=== PATIENT | female | born 1930 | race Caucasian/White ===

== ENCOUNTER → 2016-04-09 | Day surgery (SDC) | payer MEDICARE, OTHER ==
[~2016-04-09] VITALS: Ht 160 cm; Wt 60.6 kg
[~2016-04-09] MED LIST: ACETAMINOPHEN/CODEINE ELIX 120 MG/12 MG/5 ML CUP PO PRN; AMLO5TAB2 PO; ASPI1TAB69 PO; BUPIVACAINE HCL PF 0.25% 30 ML VIAL ONE; CHLORHEXIDINE GLUCONATE 4% SOLN 120 ML BTL TOP SCH; DIOV80TA4 PO; DO NOT ADM ANY ANTICOAGULANT DRUGS XX PRN; FERR324T4 PO; INSULIN HUMAN REGULAR 1,000 UNITS/10 ML VIAL SQ PRN; LACTATED RINGER'S 1000 ML IV SCH; METO25 PO; METO50TA PO; METOPROLOL TARTRATE 25 MG TAB PO PRN; NORC5TAB PO; ONDANSETRON HCL 4 MG/2 ML VIAL IV PRN; ONDANSETRON HCL 4 MG/2 ML VIAL IV PUSH ONE; PHENYLEPH/NS 1000 MCG/10 ML SYR IV ONE; PROPOFOL 200 MG/20 ML AMP IV ONE; RANI150C PO; SODIUM CHLORID 0.9% 500 ML IV SCH; SODIUM CHLORIDE 0.9% FLUSH 5 ML FLUSH IVF PRN; SODIUM CHLORIDE 0.9% FLUSH 5 ML FLUSH IVF SCH; TAB-TAB PO; VANCOMYCIN 1000 MG/NS 250 ML (for <70 kg) IV SCH; VITA100021 SL; ZANT150T2 PO; ceFAZolin 2 GM PREMIX 50 ML IV SCH; ceFAZolin INJ 1,000 MG VIAL IV ONE; ePHEDrine/NS 50 MG/5 ML SYR IV ONE; fentaNYL CITRATE 250 MCG/5 ML AMP ONE
[2016-04-09 14:27] VITALS: BP 134/84; PULSE 66; RESP 16; TEMP 97.6; O2SAT 98
[2016-04-09] MEDS: BUPIVACAINE HCL PF 0.25% 30 ML VIAL ONE ×2 (17:15→17:28)
--- NOTE | 2016-04-09 18:07 | PD.OP ---
cc: Ferny Joshua Jr., MD Operative Report Date of Surgery: Apr 09, 2016 Preoperative Diagnosis: Right carpal tunnel syndrome Postoperative Diagnosis: Same Procedure: Right open carpal tunnel release Anesthesia: Gen. Surgeon: Ferny Joshua Sales Representative Education Courses(s): KING Kim The surgical procedure was assisted by my Advanced Registered Nurse Practitioner. My SOCIAL SCIENTIST presence was necessary throughout this case for the manipulation and positioning of the surgical extremity. My SOCIAL SCIENTIST was assisting me throughout the duration of this procedure. The skill set of an Advance Registered Nurse Practitioner was medically necessary to complete this procedure. During the surgical case, the surgical supervisor was working at the back table and the Advance Registered Nurse Practitioner was directly assisting me. Resident Surgeon: None Operation and Findings: INDICATION FOR PROCEDURE: This patient is a 85-year-old female with clinical carpal tunnel syndrome, which was comfirmed on EMG. She failed conservative treatment such as activity modification, rest, NSAIDS and night splint. she is scheduled for the above-mentioned procedures. The planned procedures were discussed with the patient including the associated risks. The risks included but are not limited to bleeding, infection, nerve damage, failure to heal, possible need for reoperation, possible recurrence, or any associated risk of the anesthesia. sHe voiced understanding and agreed to proceed as planned. DESCRIPTION OF PROCEDURE: The patient was identified in the holding area and the correct operative site was identified by the surgeon's initials. Informed consent was obtained. The patient was then brought to the operating room and transferred to the operating table in supine position. Time-out was then performed at which point the surgeon, nursing staff, and anesthesia staff all confirmed the correct operative site and procedure. After adequate general LMA anesthesia was obtained, The left upper extremity was then prepped and draped in the usual sterile fashion. Planned skin incision was marked along the base of the patient's palm. Skin incision was then made and dissection was carried down with scalpel to the level of the palmar fascia which was sharply divided by the skin incision. Bleeding points were identified with electrocautery using bipolar electrocautery. Retractors were then placed to allow visualization of the distal extent of the transverse carpal ligament, and this was then divided longitudinally under direct vision. Metzenbaum scissors were used to dissect distal to this area to confirm the absence of any remaining crossing obstructing fibrous band. Retractors were then replaced proximally to allow visualization of proximal extent of the transverse carpal ligament and the release was continued proximally until complete release was performed. This was confirmed visually and with palpation. Next, Metzenbaum scissors were used to dissect anteroposterior adjacent antebrachial fascia, and this was divided longitudinally under direct vision. Carpal canal was then inspected. The median nerve was flattened and injected. No other abnormalities were noted. The tourniquet was then deflated and hemostasis was obtained. Wounds were then irrigated with normal saline and antibiotic additive. Skin incision was then closed with interrupted 3-0 nylon suture. The wound was then dressed with xeroform, 4 x 4s and a well padded soft volar soft dressing. The patient was then awakened, extubated, and transferred over to PACU in stable condition. There were no intraoperative or immediate postoperative complications. All counts were reported as correct. Ferny Joshua Jr., MD Apr 09, 2016 18:07
[2016-04-09 18:45] VITALS: BP 152/69; PULSE 72; RESP 20; TEMP 97.3; O2SAT 100
--- NOTE | 2016-04-10 22:57 | EKG ---
Date Performed: 04/09/2016 Time Performed: 14:04:46 PTAGE: 85 years EKG: Sinus rhythm POSSIBLE RIGHT VENTRICULAR CONDUCTION DELAY BORDERLINE ECG PREVIOUS TRACING : 04/09/2011 20.51 DOCTOR: Angel Schulz Interpretating Date/Time 04/10/2016 22:49:42
== END | disposition home or self-care (01) ==
LOC: HSDC 13:22
PROVIDERS: ATTEND Orthopaedic Surgery
DX: G56.01 Carpal tunnel syndrome, right upper limb (principal); R94.31 Abnormal electrocardiogram [ECG] [EKG]
CPT/HCPCS: 01810; 64721; 86850; 86900; 86901; 93005; J0690; J2370; J2405; J3370; J7050; J7120; J3010

== ENCOUNTER 2016-08-09 17:35 | Emergency (ER) | payer MEDICARE, OTHER ==
[~2016-08-09] VITALS: Ht 165.1 cm; Wt 63.0 kg
[~2016-08-09 17:35] MED LIST changes: -ACETAMINOPHEN/CODEINE ELIX 120 MG/12 MG/5 ML CUP PO PRN; -ASPI1TAB69 PO; -BUPIVACAINE HCL PF 0.25% 30 ML VIAL ONE; -CHLORHEXIDINE GLUCONATE 4% SOLN 120 ML BTL TOP SCH; -DO NOT ADM ANY ANTICOAGULANT DRUGS XX PRN; -FERR324T4 PO; -INSULIN HUMAN REGULAR 1,000 UNITS/10 ML VIAL SQ PRN; -LACTATED RINGER'S 1000 ML IV SCH; -METO25 PO; -METOPROLOL TARTRATE 25 MG TAB PO PRN; -ONDANSETRON HCL 4 MG/2 ML VIAL IV PRN; -ONDANSETRON HCL 4 MG/2 ML VIAL IV PUSH ONE; -PHENYLEPH/NS 1000 MCG/10 ML SYR IV ONE; -PROPOFOL 200 MG/20 ML AMP IV ONE; -RANI150C PO; -SODIUM CHLORID 0.9% 500 ML IV SCH; -SODIUM CHLORIDE 0.9% FLUSH 5 ML FLUSH IVF PRN; -SODIUM CHLORIDE 0.9% FLUSH 5 ML FLUSH IVF SCH; -TAB-TAB PO; -VANCOMYCIN 1000 MG/NS 250 ML (for <70 kg) IV SCH; -ceFAZolin 2 GM PREMIX 50 ML IV SCH; -ceFAZolin INJ 1,000 MG VIAL IV ONE; -ePHEDrine/NS 50 MG/5 ML SYR IV ONE; -fentaNYL CITRATE 250 MCG/5 ML AMP ONE
[2016-08-09 17:38] VITALS: BP 155/73; PULSE 75; RESP 14; TEMP 97.6; O2SAT 99
[2016-08-09] MEDS ORDERED: ASPI1TAB69 PO (18:00)
[2016-08-09] MEDS ORDERED: TETANUS/DIPHTHERIA TOXOID ADULT 0.5 ML VIAL IM ONE (18:00)
--- NOTE | 2016-08-09 18:01 | PD ---
HPI Chief Complaint: Laceration/Skin Injury Time Seen by Provider: 17:55 Travel History International Travel<30 days: No Contact w/Intl Traveler<30days: No Traveled to known affect area: No History of Present Illness HPI 85-year-old female presents the emergency department status post slip and fall at her granddaughter's house. Patient was attending her great-granddaughters first birthday, when she slipped from tripping on a bathmat in the bathroom falling backwards and hitting her head. She has no loss of consciousness. He denies headache. She also has contusion with swelling to the right elbow without pain. There is an ecchymosis and swelling of the right lateral non- bursa. Patient has a laceration to the right upper posterior parietal region, with minimal bleeding at this time. Patient denies dental injury or neck pain. She has no other complaints of pain or injury. She takes baby aspirin daily. She is allergic to cat dander but has no medication allergies. PFSH Past Medical History Arthritis: Yes Asthma: No Autoimmune Disease: No Cancer: No Cardiovascular Problems: No High Cholesterol: No Chemotherapy: No Chest Pain: No Congestive Heart Failure: No COPD: No Cerebrovascular Accident: No Diabetes: No Diminished Hearing: No Endocrine: No Gastrointestinal Disorders: No GERD: No Genitourinary: Yes (STRESS INCONTINENCE, URGENCY) Hepatitis: No Hiatal Hernia: No Hypertension: Yes Immune Disorder: No Kidney Stones: No Musculoskeletal: Yes (ARTHRITIS, RIGHT HAND PAIN) Neurologic: No Psychiatric: No Reproductive: Yes (BLOCKED FALLOPIAN TUBES) Respiratory: No Immunizations Current: Yes Migraines: No Radiation Therapy: No Renal Failure: No Seizures: No Sickle Cell Disease: No Sleep Apnea: No Thyroid Disease: No PNEUMOCCOCAL Vaccine (Year): 2009 Menopausal: Yes Past Surgical History Abdominal Surgery: Yes (APPY) AICD: No Arteriovenous Shunt: No Body Medical Devices: RIGHT ELBOW PINS Cardiac Surgery: No Ear Surgery: No Endocrine Surgery: No Eye Surgery: No Genitourinary Surgery: No Gynecologic Surgery: Yes (OVARIAN CYST 1950) Joint Replacement: Yes (BILAT HIPS, RIGHT SHOULDER, LEFT KNEE) Oral Surgery: Yes (WISDOM TEETH EXTRACTED) Pacemaker: No Thoracic Surgery: No Other Surgery: Yes Social History Alcohol Use: Yes (OCCASIONAL WINE WITH DINNER) Tobacco Use: No Substance Use: No Allergies-Medications (Allergen,Severity, Reaction): Coded Allergies: Cat Dander (Verified Allergy, Severe, 08/09/16) Reported Meds & Prescriptions Reported Meds & Active Scripts Active Reported Aspirin 81 Mg Tabdr 81 Mg PO DAILY Vitamin B-12 (Cyanocobalamin) 1,000 Mcg Subl 1,000 Mcg SL DAILY Amlodipine (Amlodipine Besylate) 5 Mg Tab 5 Mg PO DAILY Zantac (Ranitidine HCl) 150 Mg Tab 150 Mg PO BID Metoprolol Tartrate 50 Mg Tab 50 Mg PO BID Diovan (Valsartan) 80 Mg Tab 1 Tab PO TID Review of Systems Except as stated in HPI: all other systems reviewed are Neg General / Constitutional: No: Fever Eyes: No: Visual changes HENT: No: Headaches Cardiovascular: No: Chest Pain or Discomfort Respiratory: No: Shortness of Breath Gastrointestinal: No: Abdominal Pain Genitourinary: No: Dysuria Musculoskeletal: No: Pain Skin: No Rash Neurologic: No: Weakness Psychiatric: No: Depression Endocrine: No: Polydipsia Hematologic/Lymphatic: No: Easy Bruising Physical Exam Narrative GENERAL: Patient is talkative and pleasant and in no acute distress. SKIN: Warm and dry. Normal color. Normal turgor. No rash. Patient has swollen ecchymotic right olecranon bursa of the elbow. There is no abrasion or open wound. Patient has a 3 cm linear laceration to the upper right posterior parietal scalp. No other obvious signs of trauma are noted. HEAD: Atraumatic. Normocephalic. Mild tenderness at the laceration site. EYES: Pupils equal and round. No scleral icterus. No injection or drainage. ENT: No nasal bleeding or discharge. Mucous membranes pink and moist. No dental injury. Pharynx is clear. Airway is patent. NECK: Trachea midline. No bony tenderness or step-off. Range of motion is full. C-spine is cleared utilizing nexus criteria. CARDIOVASCULAR: Regular rate and rhythm. RESPIRATORY: No accessory muscle use. Clear to auscultation. Breath sounds equal bilaterally. MUSCULOSKELETAL: Extremities without clubbing, cyanosis, or edema. No obvious deformities. Right elbow is nontender, and has full range of motion without any signs of fracture dislocation. NEUROLOGICAL: Awake and alert. No obvious cranial nerve deficits. Motor grossly within normal limits. Five out of 5 muscle strength in the arms and legs. Normal speech. PSYCHIATRIC: Appropriate mood and affect; insight and judgment normal. Data Data Last Documented VS Vital Signs Date Time Temp Pulse Resp B/P Pulse Ox O2 Delivery O2 Flow Rate FiO2 08/09/16 17:38 97.6 75 14 155/[address] Brain W/O Iv Contrast(Rout) (08/09/16 17:54) Tetanus/Diphtheria Tox Adult (Tetanus/Di (08/09/16 18:00) Lidocai-Epi 1%-1:100,000 Inj (Xylocaine- (08/09/16 18:15) MDM Medical Decision Making Medical Screen Exam Complete: Yes Emergency Medical Condition: Yes Differential Diagnosis Slip and fall. Head contusion. Scalp laceration. Right elbow contusion. Narrative Course Patient is medically stable at time of exam. CT of the head is ordered. Laceration is repaired. See procedure note. CT shows no acute process or bleed. Radiologist. Ice and compression is applied to the right elbow. Patient is to keep the wound clean and dry Iuka should be removed in 1 week. Patient is to take Tylenol as needed for pain. Patient to follow-up with her primary care physician or return to the emergency department as needed. Procedures Procedure Narrative LACERATION LOCATION: Right upper posterior scalp LENGTH: 6 cm NUMBER OF STITCHES/NAMITA: 8 [place]uka REPAIR: The area of the laceration was prepped with hydrogen peroxide and sterilely draped. The laceration was infiltrated with 4 mL was 1% lidocaine with epinephrine. The wound was copiously irrigated and explored without evidence of foreign body, tendon injury or neurovascular injury. The wound was closed using namita. This was a single layer repair. Antibiotic ointment was applied. The patient was advised to keep the dressing clean and dry. Patient tolerated the procedure well. Diagnosis Primary Impression: Fall on same level from slipping as cause of accidental injury Additional Impressions: Contusion of scalp, initial encounter Laceration of scalp without complication Qualified Code: S01.01XA - Laceration of scalp without complication, initial encounter Contusion of right elbow, initial encounter Referrals: Primary Care Physician Patient Instructions: Contusion in Adults (ED), General Instructions, Laceration (ED), Scalp Contusion in Adults (ED) Additional Instructions: Laceration is repaired. CT shows no acute process or bleed. Radiologist. Ice and compression is applied to the right elbow. Patient is to keep the wound clean and dry Namita should be removed in 1 week. Patient is to take Tylenol as needed for pain. Patient to follow-up with her primary care physician or return to the emergency department as needed. Med/Other Pt SpecificInfo: No Meds Exist/No RX given Disposition: 01 DISCHARGE HOME Condition: Stable Sanjeev Jaime August 09, 2016 18:01
[2016-08-09] MEDS ORDERED: LIDOCAINE 1%/EPINEPHrine 1:100,000 SOLN 20 ML VIAL INFIL ONE (18:15)
--- NOTE | 2016-08-09 18:36 | RADHPO ---
EXAM DATE/TIME: 08/09/2016 18:12 [facility] COMPARISON: Report only CT BRAIN W/O CONTRAST, April 09, 2011, 11:39. INDICATIONS : Fell and hit head. RADIATION DOSE: 60.93 CTDIvol (mGy) MEDICAL HISTORY : Hypertension. SURGICAL HISTORY : Appendectomy. Orthopedic surgery. ENCOUNTER: Initial ACUITY: 1 day PAIN SCALE: 0/10 LOCATION: Right cranial TECHNIQUE: Multiple contiguous axial images were obtained of the head. Using automated exposure control and adj ustment of the mA and/or kV according to patient size, radiation dose was kept as low as reasonably a chievable to obtain optimal diagnostic quality images. FINDINGS: CEREBRUM: Mild ventriculomegaly noted, has been reported previously. No evidence of midline shift, mass lesion , hemorrhage or acute infarction. No extra-axial fluid collections are seen. There is low-attenuatio n in the periventricular white matter and atrophy. POSTERIOR FOSSA: The cerebellum and brainstem are intact. The 4th ventricle is midline. The cerebellopontine angle i s unremarkable. EXTRACRANIAL: Small right parietal scalp contusion. SKULL: The calvaria is intact. No evidence of skull fracture. CONCLUSION: No bleed or other acute intracranial abnormality. Acute right parietal scalp contusion. Atrophy and c hronic white matter changes. Nikita Aguilar MD on August 09, 2016 at 18:33 Board Certified Radiologist. This report was verified electronically.
== END 2016-08-09 18:58 | disposition home or self-care (01) ==
LOC: PHEFT 17:35
DX: S00.03XA Contusion of scalp, initial encounter (principal); S01.01XA Laceration without foreign body of scalp, initial encounter; Z23 Encounter for immunization; I10 Essential (primary) hypertension; W01.0XXA Fall on same level from slipping, tripping and stumbling without subsequent striking against object, initial encounter; Y92.012 Bathroom of single-family (private) house as the place of occurrence of the external cause; Y93.01 Activity, walking, marching and hiking
CPT/HCPCS: 12002; 70450; 90471; 90714

== ENCOUNTER 2016-08-15 11:46 | Emergency (ER) | payer MEDICARE, OTHER ==
[~2016-08-15] VITALS: Ht 157.5 cm; Wt 61.5 kg
[~2016-08-15 11:46] MED LIST changes: +ASPI1TAB69 PO; -NORC5TAB PO
[2016-08-15 11:49] VITALS: BP 146/75; PULSE 71; RESP 16; TEMP 97.3; O2SAT 98
--- NOTE | 2016-08-15 12:10 | PD ---
HPI . Staple removal Chief Complaint: Wound/Suture/Staple Re-Check Time Seen by Provider: 12:06 Travel History International Travel<30 days: No Contact w/Intl Traveler<30days: No Traveled to known affect area: No History of Present Illness HPI Patient is here for staple removal from her scalp. Deshawn were placed a week ago. Patient reports no problems. PFSH Past Medical History Arthritis: Yes Asthma: No Autoimmune Disease: No Cancer: No Cardiovascular Problems: No High Cholesterol: No Chemotherapy: No Chest Pain: No Congestive Heart Failure: No COPD: No Cerebrovascular Accident: No Diabetes: No Diminished Hearing: No Endocrine: No Gastrointestinal Disorders: No GERD: No Genitourinary: Yes (STRESS INCONTINENCE, URGENCY) Hepatitis: No Hiatal Hernia: No Hypertension: Yes (ON MEDS) Immune Disorder: No Kidney Stones: No Musculoskeletal: Yes (ARTHRITIS, RIGHT HAND PAIN) Neurologic: No Psychiatric: No Reproductive: Yes (BLOCKED FALLOPIAN TUBES) Respiratory: No Immunizations Current: Yes Migraines: No Radiation Therapy: No Renal Failure: No Seizures: No Sickle Cell Disease: No Sleep Apnea: No Thyroid Disease: No Tetanus Vaccination: < 5 Years Influenza Vaccination: No PNEUMOCCOCAL Vaccine (Year): 2009 ?: Not Menopausal: Yes Past Surgical History Abdominal Surgery: Yes (APPY) AICD: No Arteriovenous Shunt: No Body Medical Devices: RIGHT ELBOW PINS Cardiac Surgery: No Ear Surgery: No Endocrine Surgery: No Eye Surgery: No Genitourinary Surgery: No Gynecologic Surgery: Yes (OVARIAN CYST 1950) Joint Replacement: Yes (BILAT HIPS, RIGHT SHOULDER, LEFT KNEE) Oral Surgery: Yes (WISDOM TEETH EXTRACTED) Pacemaker: No Thoracic Surgery: No Other Surgery: Yes Social History Alcohol Use: Yes (OCCASIONAL WINE WITH DINNER) Tobacco Use: No Substance Use: No Allergies-Medications (Allergen,Severity, Reaction): Coded Allergies: Cat Dander (Verified Allergy, Severe, 08/15/16) Reported Meds & Prescriptions Reported Meds & Active Scripts Active Reported Aspirin 81 Mg Tabdr 81 Mg PO DAILY Vitamin B-12 (Cyanocobalamin) 1,000 Mcg Subl 1,000 Mcg SL DAILY Amlodipine (Amlodipine Besylate) 5 Mg Tab 5 Mg PO DAILY Zantac (Ranitidine HCl) 150 Mg Tab 150 Mg PO BID Metoprolol Tartrate 50 Mg Tab 50 Mg PO BID Diovan (Valsartan) 80 Mg Tab 1 Tab PO TID Review of Systems Except as stated in HPI: all other systems reviewed are Neg Musculoskeletal: No: Arthralgias (patient reports no real pain in her elbow), Limited ROM (patient reports no difficulty moving her elbow) Skin: Positive Change in Pigmentation (bruise on her right elbow which was also the result of the fall which caused the scalp laceration.) Physical Exam Narrative GENERAL: Awake and alert and in no acute distress. SKIN: Warm and dry. She does have a bruise on the right elbow. Healed scalp laceration with no drainage or redness. HEAD: Atraumatic. Normocephalic. EYES: Pupils equal and round. NECK: Trachea midline. CARDIOVASCULAR: Regular rate and rhythm. RESPIRATORY: No accessory muscle use. MUSCULOSKELETAL: No obvious deformities. No edema. Full range of motion of the right elbow without any discomfort. NEUROLOGICAL: Awake and alert. No obvious cranial nerve deficits. Motor grossly within normal limits. Normal speech. PSYCHIATRIC: Appropriate mood and affect; insight and judgment normal. Data Data Last Documented VS Vital Signs Date Time Temp Pulse Resp B/P Pulse Ox O2 Delivery O2 Flow Rate FiO2 08/15/16 11:49 97.3 71 16 146/75 98 MDM Medical Decision Making Medical Screen Exam Complete: Yes Emergency Medical Condition: Yes Differential Diagnosis My differential diagnosis of a wound check includes but is not limited to normal healing, delayed healing, localized wound infection, cellulitis, sepsis Narrative Course Patient is here for a couple removal from her scalp. The wound appears to be well-healed with no sign of infection. Diagnosis Primary Impression: Removal of staple Disposition: DISCHARGE HOME Condition: Stable Antonette Wills MD August 15, 2016 12:10
== END 2016-08-15 12:25 | disposition home or self-care (01) ==
LOC: PHEFT 11:46
DX: Z48.02 Encounter for removal of sutures (principal); S01.01XD Laceration without foreign body of scalp, subsequent encounter; S50.01XD Contusion of right elbow, subsequent encounter; W19.XXXD Unspecified fall, subsequent encounter; I10 Essential (primary) hypertension; Y92.9 Unspecified place or not applicable; Y99.9 Unspecified external cause status
CPT/HCPCS: 99281

== ENCOUNTER 2017-06-03 12:19 | Emergency (ER) | payer MEDICARE, OTHER ==
[~2017-06-03] VITALS: Ht 160 cm; Wt 60.0 kg
[2017-06-03 12:31] VITALS: BP 126/57; PULSE 90; RESP 16; TEMP 97.8; O2SAT 95; O2SAT 96
[2017-06-03] MEDS ORDERED: MULTTAB67 PO (12:44)
[2017-06-03] MEDS ORDERED: Iron PO (12:44)
[2017-06-03] MEDS ORDERED: predniSONE 20 MG TAB PO ONE (13:00)
--- NOTE | 2017-06-03 13:00 | PD ---
HPI Chief Complaint: Cold / Flu Symptoms Time Seen by Provider: 12:39 Travel History International Travel<30 days: No Contact w/Intl Traveler<30days: No Traveled to known affect area: No History of Present Illness HPI 86-year-old female presents to the ED for evaluation one month history of nonproductive cough. She endorses right lower anterior rib pain, diuretic in nature, onset yesterday. She denies ear pain, sinus congestion, rhinorrhea, fevers, chills, palpitations, shortness of breath, nausea, vomiting, lower extremity edema. She quit smoking over 40 years ago. No history of COPD, CHF. Denies history of environmental allergies. She did receive this years flu vaccine. No treatment attempted at home. PFSH Past Medical History Arthritis: Yes Asthma: No Autoimmune Disease: No Cancer: No Cardiovascular Problems: Yes (htn on meds) High Cholesterol: No Chemotherapy: No Chest Pain: No Congestive Heart Failure: No COPD: No Cerebrovascular Accident: No Diabetes: No Diminished Hearing: No Endocrine: No Gastrointestinal Disorders: No GERD: No Genitourinary: Yes (STRESS INCONTINENCE, URGENCY) Hepatitis: No Hiatal Hernia: No Hypertension: Yes (ON MEDS) Immune Disorder: No Kidney Stones: No Musculoskeletal: Yes (ARTHRITIS, RIGHT HAND PAIN) Neurologic: No Psychiatric: No Reproductive: Yes (BLOCKED FALLOPIAN TUBES) Respiratory: No Immunizations Current: Yes Migraines: No Radiation Therapy: No Renal Failure: No Seizures: No Sickle Cell Disease: No Sleep Apnea: No Thyroid Disease: No Tetanus Vaccination: < 5 Years Influenza Vaccination: Yes PNEUMOCCOCAL Vaccine (Year): 2009 ?: Not Menopausal: Yes Past Surgical History Abdominal Surgery: Yes (APPY) AICD: No Arteriovenous Shunt: No Body Medical Devices: RIGHT ELBOW PINS Cardiac Surgery: No Ear Surgery: No Endocrine Surgery: No Eye Surgery: No Genitourinary Surgery: No Gynecologic Surgery: Yes (OVARIAN CYST 1950) Joint Replacement: Yes (BILAT HIPS, RIGHT SHOULDER, LEFT KNEE) Oral Surgery: Yes (WISDOM TEETH EXTRACTED) Pacemaker: No Thoracic Surgery: No Other Surgery: Yes Social History Alcohol Use: Yes (OCCASIONAL WINE WITH DINNER) Tobacco Use: No (quit approx 40 years ago) Substance Use: No Allergies-Medications (Allergen,Severity, Reaction): Coded Allergies: cat dander (Unverified Allergy, Severe, 06/03/17) Reported Meds & Prescriptions Reported Meds & Active Scripts Active Proair Hfa 8.5 GM Inh (Albuterol Sulfate) 90 Mcg/Act Aer 2 Puff INH Q4-6H PRN 108 mcg/actuation Levaquin (Levofloxacin) 750 Mg Tablet 750 Mg PO DAILY 5 Days Reported [Iron] 1 Tab PO DAILY Multiple Vitamin 1 Tab 1 Tab PO DAILY Aspirin 81 Mg Tabdr 81 Mg PO DAILY Vitamin B-12 (Cyanocobalamin) 1,000 Mcg Subl 1,000 Mcg SL DAILY Amlodipine (Amlodipine Besylate) 5 Mg Tab 5 Mg PO DAILY Zantac (Ranitidine HCl) 150 Mg Tab 150 Mg PO BID Metoprolol Tartrate 50 Mg Tab 50 Mg PO BID Diovan (Valsartan) 80 Mg Tab 1 Tab PO TID Review of Systems Except as stated in HPI: all other systems reviewed are Neg Physical Exam Narrative GENERAL: Well-nourished, well-developed white female in no acute distress. SKIN: Warm and dry. HEAD: Normocephalic. Atraumatic. EYES: No scleral icterus. No injection or drainage. PERRLA. EOMI. ENT: Pearly obrien tympanic membranes bilaterally. Nasal mucosa is moist. Oropharynx without edema or exudate. Mild posterior edema. NECK: Supple, trachea midline. No JVD or lymphadenopathy. CARDIOVASCULAR: Regular rate and rhythm without murmurs, gallops, or rubs. No carotid bruits. 2+ DP and radial pulses bilaterally. CHEST: Tender to palpation of the anterior lateral right ribs. No deformity or crepitus. No retractions. RESPIRATORY: Breath sounds somewhat diminished, equal bilaterally. Rare end expiratory wheeze. No accessory muscle use. GASTROINTESTINAL: Abdomen soft, non-tender, nondistended. + Bowel sounds MUSCULOSKELETAL: No cyanosis, or edema. BACK: Nontender without obvious deformity. No CVA tenderness. Data Data Last Documented VS Vital Signs Date Time Temp Pulse Resp B/P (MAP) Pulse Ox O2 Delivery O2 Flow Rate FiO2 06/03/17 12:49 20 95 06/03/17 12:31 97.8 90 126/57 (80) Orders Orders Chest, Pa & Lat (06/03/17 ) Albuterol-Ipratropium Neb (Duoneb Neb) (06/03/17 13:00) Prednisone (Deltasone) (06/03/17 13:00) Levofloxacin (Levaquin) (06/03/17 13:45) Acetaminophen (Tylenol) (06/03/17 13:45) Ed Discharge Order (06/03/17 13:48) [facility] Medical Decision Making Medical Screen Exam Complete: Yes Emergency Medical Condition: Yes Differential Diagnosis Bronchitis versus pneumonia versus pleurisy versus upper airway cough syndrome versus other Narrative Course 86-year-old female presents to the ED for evaluation one month history of nonproductive cough. She endorses right lower anterior rib pain, diuretic in nature, onset yesterday. She quit smoking over 40 years ago. No history of COPD. received this years flu shot. Patient afebrile, respiratory rate 16, O2 saturation 96% on arrival. On exam the patient has a dry cough, reproducible tenderness on the anterior lateral right ribs. Breath sounds are somewhat diminished with rare end expiratory wheeze. Exam otherwise unremarkable. X- ray reveals a pleural effusion on the right with a consolidation as well as aortic root dilatation. Patient was administered duo nebs 2, 40 mg of prednisone. I spoke with the patient's sons at bedside. They are comfortable with discharge for outpatient treatment of community-acquired pneumonia. Patient is prescribed Levaquin 750 daily 5 days. First dose administered in the ED. She is provided with a rescue inhaler. She is instructed take Tylenol for the musculoskeletal pain, follow-up with her doctor in 2 days, return to the ED for worsening symptoms. She is stable and discharged home. Diagnosis Primary Impression: Community acquired pneumonia Qualified Codes: J18.1 - Lobar pneumonia, unspecified organism Referrals: Primary Care Physician Patient Instructions: Community Acquired Pneumonia (ED), General Instructions Additional Instructions: Rest, hydrate. Take antibiotics as prescribed. Tylenol or ibuprofen as needed for pleuritic chest pain. Rescue inhaler as needed for shortness of breath. Follow-up with primary care provider. Return to the ED for worsening symptoms or any urgent or emergent medical condition. Med/Other Pt SpecificInfo: Prescription(s) given Scripts Albuterol 8.5 GM Inh (Proair Hfa 8.5 GM Inh) 90 Mcg/Act Aer 2 PUFF INH Q4-6H Y for SHORTNESS OF BREATH, #1 INHALER 0 Refills 108 mcg/actuation Prov: Edin Elise MD 06/03/17 Levofloxacin (Levaquin) 750 Mg Tablet 750 MG PO DAILY for Infection for 5 Days, #5 TAB 0 Refills Prov: Edin Elise MD 06/03/17 Disposition: 01 DISCHARGE HOME Condition: Stable Rani Peralta Jun 03, 2017 13:00
[2017-06-03] MEDS: RESP: ALBUTEROL 2.5 MG/IPRATROPIUM 0.5 MG NEB (SCH) INH ×2 (13:28→13:29)
--- NOTE | 2017-06-03 13:36 | RADRPT ---
EXAM DATE/TIME: 06/03/2017 13:14 [facility] COMPARISON: No previous studies available for comparison. INDICATIONS : Cough for 1 month. MEDICAL HISTORY : Hypertension. Scoliosis. SURGICAL HISTORY : Appendectomy. ENCOUNTER: Initial ACUITY: 1 month PAIN SCORE: 9/10 LOCATION: Right chest FINDINGS: The heart is mildly enlarged. There is dilation of the aortic root and ascending aorta. The aortic kn ob measures approximately 7 cm. There is right-sided pleural effusion and consolidative change in the right lower lobe. There are chr onic interstitial changes throughout both lungs. There are advanced arthritic changes in the left shoulder. The patient is post arthroplasty on the ri t side. CONCLUSION: 1. Right-sided pleural effusion and consolidation. 2. 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 Domingo Mckeon MD on June 03, 2017 at 13:33 Board Certified Radiologist. This report was verified electronically.
[2017-06-03] MEDS ORDERED: ALBUAER3 INH (13:43)
[2017-06-03] MEDS ORDERED: LEVA750T9 PO (13:43)
[2017-06-03] MEDS ORDERED: LEVOFLOXACIN 750 MG TAB PO ONE (13:45)
[2017-06-03] MEDS ORDERED: ACETAMINOPHEN 500 MG CPLT PO ONE (13:45)
== END 2017-06-03 14:46 | disposition home or self-care (01) ==
LOC: PHEFT 12:19
DX: J18.1 Lobar pneumonia, unspecified organism (principal); R07.81 Pleurodynia; R05 Cough; I10 Essential (primary) hypertension; J90 Pleural effusion, not elsewhere classified
CPT/HCPCS: 71046; 94640; 94664; 99284; J7512

== ENCOUNTER 2017-06-04 21:30 | Inpatient (IN) | payer MEDICARE, OTHER ==
[~2017-06-04] VITALS: Ht 160 cm; Wt 58.5 kg
[~2017-06-04 21:30] MED LIST changes: +ALBUAER3 INH; +Iron PO; +LEVA750T9 PO; +MULTTAB67 PO
[2017-06-04 21:35] VITALS: BP 142/59; PULSE 112; RESP 18; TEMP 98.1; O2SAT 100
[2017-06-04] MEDS ORDERED: ACETAMINOPHEN 325 MG TAB PO ONE (21:45)
[2017-06-04] MEDS ORDERED: TETANUS/DIPHTHERIA TOXOID ADULT 0.5 ML VIAL IM ONE (22:00)
[2017-06-04] MEDS ORDERED: SODIUM CHLORID 0.9% 500 ML INJ 500 ML IV ONE (22:00)
--- NOTE | 2017-06-04 22:33 | RADRPT ---
EXAM DATE/TIME: 06/04/2017 21:56 [facility] COMPARISON: CT BRAIN W/O CONTRAST, August 09, 2016, 18:12. INDICATIONS : Fall. Laceration. Evaluate for cerebrovascular accident. RADIATION DOSE: 56.49 CTDIvol (mGy) MEDICAL HISTORY : Hypertension. SURGICAL HISTORY : None. ENCOUNTER: Initial ACUITY: 1 day PAIN SCALE: 5/10 LOCATION: occipital TECHNIQUE: Multiple contiguous axial images were obtained of the head. Using automated exposure control and adj ustment of the mA and/or kV according to patient size, radiation dose was kept as low as reasonably a chievable to obtain optimal diagnostic quality images. DICOM format image data is available electro nically for review and comparison. FINDINGS: CEREBRUM: Mild ventriculomegaly noted, has been reported previously. No evidence of midline shift, mass lesion , hemorrhage or acute infarction. No extra-axial fluid collections are seen. There is low-attenuatio n in the periventricular white matter and atrophy. POSTERIOR FOSSA: The cerebellum and brainstem are intact. The 4th ventricle is midline. The cerebellopontine angle i s unremarkable. EXTRACRANIAL: Right parietal scalp contusion/laceration. SKULL: The calvaria is intact. No evidence of skull fracture. CONCLUSION: 1. No bleed or evidence of an acute ischemic event. 2. Ventriculomegaly unchanged. 3. Chronic white matter changes are again seen. Nikita Aguilar MD on June 04, 2017 at 22:30 Board Certified Radiologist. This report was verified electronically.
[2017-06-04 22:34] LABS: AUTOMATED NEUTROPHIL # 22.9 TH/MM3 (1.8-7.7); BASOPHIL % 3.3 % (0.0-2.0); EOSINOPHIL # 0.1 TH/MM3 (0-0.4); EOSINOPHIL % 0.3 % (0.0-4.0); HEMATOCRIT 38.9 % (35.0-46.0); HEMOGLOBIN 12.6 GM/DL (11.6-15.3); LYMPH % 5.6 % (9.0-44.0); LYMPHOCYTE # 1.6 TH/MM3 (1.0-4.8); MEAN CELL VOLUME 89.9 FL (80.0-100.0); MEAN CORPUSCULAR HEMOGLOBIN 29.2 PG (27.0-34.0); MEAN CORPUSCULAR HGB CONC 32.4 % (32.0-36.0); MEAN PLATELET VOLUME 7.4 FL (7.0-11.0); MONO % 11.1 % (0.0-8.0); MONOCYTE # 3.2 TH/MM3 (0-0.9); NEUT % 79.7 % (16.0-70.0); PLATELET COUNT 521 TH/MM3 (150-450); RED BLOOD COUNT 4.33 MIL/MM3 (4.00-5.30); RED CELL DISTRIBUTION WIDTH 13.2 % (11.6-17.2); WHITE BLOOD COUNT 28.8 TH/MM3 (4.0-11.0)
[2017-06-04 22:39] VITALS: BP 151/66; PULSE 102; RESP 18; O2SAT 96
[2017-06-04 22:44] LABS: CHLORIDE 97 MEQ/L (98-107); SODIUM (NA) 131 MEQ/L (136-145)
[2017-06-04 22:47] LABS: CALCIUM 9.1 MG/DL (8.5-10.1)
[2017-06-04 22:48] LABS: BICARBONATE 22.4 MEQ/L (21.0-32.0); BLOOD UREA NITROGEN 24 MG/DL (7-18); GLUCOSE,RANDOM 103 MG/DL (74-106)
[2017-06-04 22:51] LABS: ALT (GPT) 51 U/L (10-53); AST (GOT) 48 U/L (15-37); CREATININE 0.92 MG/DL (0.50-1.00); GLOMERULAR FILTRATION RATE 58 ML/MIN (>89)
[2017-06-04 22:52] LABS: TOTAL BILIRUBIN ADULT 0.2 MG/DL (0.2-1.0); TOTAL PROTEIN 7.5 GM/DL (6.4-8.2)
[2017-06-04 22:54] LABS: ALKALINE PHOSPHATASE 115 U/L (45-117)
[2017-06-04 22:56] LABS: TROPONIN I LESS THAN 0.02 NG/ML (0.02-0.05)
[2017-06-04 23:05] LABS: ALBUMIN 2.1 GM/DL (3.4-5.0)
[2017-06-04] MEDS ORDERED: LIDOCAINE 2%/EPINEPHrine PF 1:200,000 20ML SDV INFIL ONE (23:15)
[2017-06-05] VITALS (11 sets, daily range): BP systolic 126–169; BP diastolic 58–79; PULSE 102–130; RESP 12–20; TEMP 96.2–98; O2SAT 92–98
[2017-06-05 00:18] LABS: BILIRUBIN, URINE NEG (NEG); BLOOD, URINE SMALL (NEG); GLUCOSE,URINE NEG (NEG); KETONE, URINE 15 mg/dL (NEG); NITRITE,URINE NEG (NEG); PH, URINE 5.5 (5.0-8.5); URINE COLOR YELLOW (YELLW/STRAW); URINE LEUKOCYTE ESTERASE LARGE (NEG)
[2017-06-05 00:24] LABS: BACTERIA, URINE MANY /hpf; SQUAMOUS EPITHELIAL CELL URINE > 8 /hpf (0-5)
--- NOTE | 2017-06-05 00:32 | PD ---
HPI Chief Complaint: Head Injury Time Seen by Provider: 21:40 Travel History International Travel<30 days: No Contact w/Intl Traveler<30days: No Traveled to known affect area: No History of Present Illness HPI Patient is an 86-year-old female who was in our hospital yesterday diagnosed with a pleural effusion and a pneumonia put on antibiotics. Patient was home today on the couch when she suddenly is unaware of how she ended up on the floor with a head laceration and pain to her occiput area she was lying there for a while when her daughter came and found her. Patient on arrival is awake alert mildly tachycardic 123 sinus with few PVCs patient denies any illness or pain except that pain in her head. SHe is on p.o. Levaquin for this and still is mildly febrile and tachycardic and had a syncopal episode. Denies chest pain denies SOB , Pt alert and OX3 and no complaints in ER she seems stoic PFSH Past Medical History Arthritis: Yes Asthma: No Autoimmune Disease: No Cancer: No Cardiovascular Problems: Yes (htn on meds) High Cholesterol: No Chemotherapy: No Chest Pain: No Congestive Heart Failure: No COPD: No Cerebrovascular Accident: No Diabetes: No Diminished Hearing: No Endocrine: No Gastrointestinal Disorders: No GERD: No Genitourinary: Yes (STRESS INCONTINENCE, URGENCY) Headaches: No Hepatitis: No Hiatal Hernia: No Heparin Induced Thrombocytopen: No Hypertension: Yes (ON MEDS) Immune Disorder: No Implanted Vascular Access Dvce: No Kidney Stones: No Musculoskeletal: Yes (ARTHRITIS, RIGHT HAND PAIN) Neurologic: No Psychiatric: No Reproductive: Yes (BLOCKED FALLOPIAN TUBES) Respiratory: No Immunizations Current: Yes Migraines: No Radiation Therapy: No Renal Failure: No Seizures: No Sickle Cell Disease: No Sleep Apnea: No Thyroid Disease: No Tetanus Vaccination: < 5 Years PNEUMOCCOCAL Vaccine (Year): 2009 ?: Not Menopausal: Yes Past Surgical History Abdominal Surgery: Yes (APPY) AICD: No Arteriovenous Shunt: No Body Medical Devices: RIGHT ELBOW PINS Cardiac Surgery: No Ear Surgery: No Endocrine Surgery: No Eye Surgery: No Genitourinary Surgery: No Gynecologic Surgery: Yes (OVARIAN CYST 1950) Joint Replacement: Yes (BILAT HIPS, RIGHT SHOULDER, LEFT KNEE) Neurologic Surgery: No Oral Surgery: Yes (WISDOM TEETH EXTRACTED) Pacemaker: No Thoracic Surgery: No Other Surgery: Yes Social History Alcohol Use: Yes (OCCASIONAL WINE WITH DINNER) Tobacco Use: No (quit approx 40 years ago) Substance Use: No Allergies-Medications (Allergen,Severity, Reaction): Coded Allergies: cat dander (Verified Allergy, Severe, 06/04/17) Reported Meds & Prescriptions Reported Meds & Active Scripts Active Proair Hfa 8.5 GM Inh (Albuterol Sulfate) 90 Mcg/Act Aer 2 Puff INH Q4-6H PRN 108 mcg/actuation Levaquin (Levofloxacin) 750 Mg Tablet 750 Mg PO DAILY 5 Days Reported [Iron] 1 Tab PO DAILY Multiple Vitamin 1 Tab 1 Tab PO DAILY Vitamin B-12 (Cyanocobalamin) 1,000 Mcg Subl 1,000 Mcg SL DAILY Amlodipine (Amlodipine Besylate) 5 Mg Tab 5 Mg PO DAILY Zantac (Ranitidine HCl) 150 Mg Tab 150 Mg PO BID Metoprolol Tartrate 50 Mg Tab 50 Mg PO BID Diovan (Valsartan) 80 Mg Tab 1 Tab PO TID Review of Systems Except as stated in HPI: all other systems reviewed are Neg Physical Exam Narrative GENERAL: Patient has a laceration contusion hematoma to the occiput of her right side of her head SKIN: Warm and dry. HEAD: +traumatic. Normocephalic. 7 cm irregular lac y- shaped EYES: Pupils equal and round. No scleral icterus. No injection or drainage. ENT: No nasal bleeding or discharge. Mucous membranes pink and moist. NECK: Trachea midline. No JVD. CARDIOVASCULAR: Regular rate and rhythm. Patient is tachycardic at 123 few PVCs on monitor RESPIRATORY: No accessory muscle use. Clear to auscultation. Breath sounds equal bilaterally. Patient is denies shortness of breath GASTROINTESTINAL: Abdomen soft, non-tender, nondistended. Hepatic and splenic margins not palpable. MUSCULOSKELETAL: Extremities without clubbing, cyanosis, or edema. No obvious deformities. NEUROLOGICAL: Awake and alert. No obvious cranial nerve deficits. Motor grossly within normal limits. Five out of 5 muscle strength in the arms and legs. Normal speech. PSYCHIATRIC: Appropriate mood and affect; insight and judgment normal. Data Data Last Documented VS Vital Signs Date Time Temp Pulse Resp B/P (MAP) Pulse Ox O2 Delivery O2 Flow Rate FiO2 06/05/17 00:24 102 16 126/59 (81) 97 Nasal Cannula 2.00 06/04/17 21:35 98.1 Orders Orders Acetaminophen (Tylenol) (06/04/17 21:45) Ct Brain W/O Iv Contrast(Rout) (06/04/17 ) Tetanus/Diphtheria Tox Adult (Tetanus/Di (06/04/17 22:00) Sodium Chlorid 0.9% 500 Ml Inj (Ns 500 M (06/04/17 22:00) Complete Blood Count With Diff (06/04/17 22:05) Comprehensive Metabolic Panel (06/04/17 22:05) Troponin I (06/04/17 22:05) Lipase (06/04/17 22:05) Blood Culture (06/04/17 22:05) Urinalysis - C+S If Indicated (06/04/17 22:05) Lidoca-Epi Pf 2%-1:200,000 Inj (Xylocain (06/04/17 23:15) Ct Thorax/ Chest Wo Iv Contras (06/05/17 ) Urine Culture (06/05/17 00:10) Place In Observation (06/05/17 ) Vital Signs (Adult) Q4H (06/05/17 00:42) Activity Oob With Assistance (06/05/17 00:42) Diet Heart Healthy (06/05/17 Breakfast) Sodium Chlor 0.9% 1000 Ml Inj (Ns 1000 M (06/05/17 00:42) Sodium Chloride 0.9% Flush (Ns Flush) (06/05/17 00:45) Sodium Chloride 0.9% Flush (Ns Flush) (06/05/17 09:00) Acetaminophen (Tylenol) (06/05/17 00:45) Ondansetron Inj (Zofran Inj) (06/05/17 00:45) Basic Metabolic Panel (Bmp) (06/06/17 06:00) Complete Blood Count With Diff (06/06/17 06:00) Resp Oxygen Suraj C Titrat 1-4 L (06/05/17 ) Heparin Inj (Heparin Inj) (06/05/17 00:45) Naloxone Inj (Narcan Inj) (06/05/17 00:45) Docusate Sodium-Senna (Dayanara-Colace) (06/05/17 09:00) Magnesium Hydroxide Liq (Milk Of Magnesi (06/05/17 00:45) Sennosides (Senokot) (06/05/17 00:45) Bisacodyl Supp (Dulcolax Supp) (06/05/17 00:45) Lactulose Liq (Lactulose Liq) (06/05/17 00:45) Levofloxacin 750 Mg Premix Inj (Levaquin (06/05/17 01:00) Admit Order (Ed Use Only) (06/05/17 00:52) Labs Laboratory Tests Test 06/04/17 22:25 06/05/17 00:10 White Blood Count 28.8 TH/MM3 Red Blood Count 4.33 MIL/MM3 Hemoglobin 12.6 GM/DL Hematocrit 38.9 % Mean Corpuscular Volume 89.9 FL Mean Corpuscular Hemoglobin 29.2 PG Mean Corpuscular Hemoglobin Concent 32.4 % Red Cell Distribution Width 13.2 % Platelet Count 521 TH/MM3 Mean Platelet Volume 7.4 FL Neutrophils (%) (Auto) 79.7 % Lymphocytes (%) (Auto) 5.6 % Monocytes (%) (Auto) 11.1 % Eosinophils (%) (Auto) 0.3 % Basophils (%) (Auto) 3.3 % Neutrophils # (Auto) 22.9 TH/MM3 Lymphocytes # (Auto) 1.6 TH/MM3 Monocytes # (Auto) 3.2 TH/MM3 Eosinophils # (Auto) 0.1 TH/MM3 Basophils # (Auto) 1.0 TH/MM3 CBC Comment AUTO DIFF Differential Comment AUTO DIFF CONFIRMED Blood Urea Nitrogen 24 MG/DL Creatinine 0.92 MG/DL Random Glucose 103 MG/DL Total Protein 7.5 GM/DL Albumin 2.1 GM/DL Calcium Level 9.1 MG/DL Alkaline Phosphatase 115 U/L Aspartate Amino Transf (AST/SGOT) 48 U/L Alanine Aminotransferase (ALT/SGPT) 51 U/L Total Bilirubin 0.2 MG/DL Sodium Level 131 MEQ/L Potassium Level 4.2 MEQ/L Chloride Level 97 MEQ/L Carbon Dioxide Level 22.4 MEQ/L Anion Gap 12 MEQ/L Estimat Glomerular Filtration Rate 58 ML/MIN Troponin I LESS THAN 0.02 NG/ML Lipase 101 U/L Urine Color YELLOW Urine Turbidity SL CLOUDY Urine pH 5.5 Urine Specific [place] 1.025 Urine Protein TRACE mg/dL Urine Glucose (UA) NEG mg/dL Urine Ketones 15 mg/dL Urine Occult Blood SMALL Urine Nitrite NEG Urine Bilirubin NEG Urine Urobilinogen 0.2 MG/DL Urine Leukocyte Esterase LARGE Urine RBC 3-5 /hpf Urine WBC 20-24 /hpf Urine Squamous Epithelial Cells > 8 /hpf Urine Bacteria MANY /hpf Microscopic Urinalysis Comment CULTURE INDICATED MDM Medical Decision Making Medical Screen Exam Complete: Yes Emergency Medical Condition: Yes Differential Diagnosis pt has tachycardia and recent dx of pleural effusion and infiltrate. Now worsening Sx of syncope tonight , with head laceration from fall , DDx could include intracranial bleed vs sepsis , bronchitis worsening effusion and hypoxia causing syncope, or UTI other , possible cardiac cause of syncope tachy from low grade fever . pt has frequent PVCs could have had run of V-tach syncope Narrative Course CT head to rule out intracranial injury from syncope head injury . Laceration repaired by this MD and NS bolus and tylenol for tachycardia, pt heart rate slows towards normal and she is admitted for pleural effusion and consolidation seen on non Contrast CT and stable to admit she is already on Levaquin so I will let I D decide if antibx change indicated Procedures Procedure Narrative laceration repair 7 cm lac y shaped , lidaocaine 2% AND PT irrigated saline Peroxide [place] placed 13 total stals to close stellate y shape irregular lac Diagnosis Primary Impression: Laceration of scalp without complication Qualified Codes: S01.01XA - Laceration without foreign body of scalp, initial encounter Additional Impression: Syncope and collapse Admitting Information Admitting Physician Requests: Admit Cordell Okeefe MD Jun 05, 2017 00:32
[2017-06-05] MEDS: SODIUM CHLOR 0.9% 1000 ML INJ 1,000 ML IV SCH ×3 (00:42→22:34)
[2017-06-05] MEDS ORDERED: SENNOSIDES 8.6 MG TAB PO PRN (00:45)
[2017-06-05] MEDS ORDERED: BISACODYL 10 MG SUPP RECTAL PRN (00:45)
[2017-06-05] MEDS ORDERED: ONDANSETRON HCL 4 MG/2 ML VIAL IVP PRN (00:45)
[2017-06-05] MEDS ORDERED: ACETAMINOPHEN 325 MG TAB PO PRN (00:45)
[2017-06-05] MEDS ORDERED: LACTULOSE SYRUP 20 GM/30 ML CUP PO PRN (00:45)
[2017-06-05] MEDS ORDERED: NALOXONE HCL 0.4 MG/ML AMP IV PUSH PRN (00:45)
[2017-06-05] MEDS ORDERED: SODIUM CHLORIDE 0.9% FLUSH 10 ML FLUSH IV FLUSH PRN (00:45)
[2017-06-05] MEDS: HEPARIN SODIUM - SQ 10,000 UNITS/ML VIAL SQ SCH ×3 (00:45→23:34)
[2017-06-05] MEDS ORDERED: MAGNESIUM HYDROXIDE SUSP 30 ML CUP PO PRN (00:45)
[2017-06-05] MEDS ORDERED: LEVOFLOXACIN 750 MG PREMIX INJ 150 ML IV SCH (01:00)
--- NOTE | 2017-06-05 01:19 | RADRPT ---
EXAM DATE/TIME: 06/05/2017 00:46 [facility] COMPARISON: CHEST PA & LAT, June 03, 2017, 13:14. INDICATIONS : Pneumonia. Cough. RADIATION DOSE: 8.45 CTDIvol (mGy) MEDICAL HISTORY : Hypertension. SURGICAL HISTORY : Right shoulder replacement. ENCOUNTER: Initial ACUITY: 2 days PAIN SCALE: 3/10 LOCATION: chest TECHNIQUE: Volumetric scanning of the chest was performed. Using automated exposure control and adjustment of t he mA and/or kV according to patient size, radiation dose was kept as low as reasonably achievable to obtain optimal diagnostic quality images. DICOM format image data is available electronically for r eview and comparison. Follow-up recommendations for detected pulmonary nodules are based at a minimum on nodule size and pa tient risk factors according to Fleischner Society Guidelines. FINDINGS: LUNGS: Right basilar consolidation with associated right-sided effusion. Effusion has a loculated component tracking up the right posterolateral chest. PLEURAE: Partially loculated right pleural effusion.. MEDIASTINUM: The heart and great vessels demonstrate no acute abnormality. There is no mediastinal or hilar lymph adenopathy. Atherosclerotic calcification of the coronary arteries. Trace pericardial effusion AXILLAE: Within normal limits. No lymphadenopathy. MUSCULOSKELETAL: Within normal limits for patient age. MISCELLANEOUS: The visualized upper abdominal organs demonstrate no acute abnormality. Prominent 5 cm cyst anteriorl y in the mid pole left kidney. Right shoulder arthroplasty with severe degenerative changes of the le ft humerus. CONCLUSION: 1. Right basilar consolidation with associated partially loculated right-sided effusion. 2. Trace pericardial effusion. 3. Severe degenerative changes in the left shoulder. 4. 5 cm cyst in the anterior midpole of the left kidney. Сергей Van MD on June 05, 2017 at 1:14 Board Certified Radiologist. This report was verified electronically.
--- NOTE | 2017-06-05 08:52 | HHI.HP ---
[facility] Ihsan (Magnus) MD Madi Admission Diagnosis UTI, pleural effusion Diagnoses: Chief Complaint: Status post fall. Travel History International Travel<30 Days: No Contact w/Intl Traveler <30 Da: No Traveled to Known Affected Are: No History of Present Illness This is a pleasant 86 y/o Female who was in ER one day before coming to ER was diagnosed with a pleural effusion and Pneumonia was started on antibiotics, Patient was home today on the couch when she suddenly is unaware of how she ended up on the floor with a head laceration and pain to her occiput area she was lying there for a while when her daughter came and found her. Patient on arrival is awake alert mildly tachycardic 123 sinus with few PVCs patient denies any illness or pain except that pain in her head. He is on p.o. Levaquin for this and still is mildly febrile and tachycardic and had a syncopal episode. Denies chest pain denies SOB Seen in her bedroom, found dry mouth, no new issues, Review of Systems Constitutional: DENIES: Fever, Chills, Change in appetite Endocrine: DENIES: Heat/cold intolerance Eyes: DENIES: Blurred vision, Eye pain Except as stated in HPI: all other systems reviewed are Neg Past Family Social History Past Medical History OA Stress incontinence Hypertension Past Surgical History Appendectomy Right elbow surgery Ovarian cyst 1950 Bilateral Hip surgery right shoulder surgery Left knee surgery Reported Medications Reported Meds & Active Scripts Active Proair Hfa 8.5 GM Inh (Albuterol Sulfate) 90 Mcg/Act Aer 2 Puff INH Q4-6H PRN 108 mcg/actuation Levaquin (Levofloxacin) 750 Mg Tablet 750 Mg PO DAILY 5 Days Reported [Iron] 1 Tab PO DAILY Multiple Vitamin 1 Tab 1 Tab PO DAILY Vitamin B-12 (Cyanocobalamin) 1,000 Mcg Subl 1,000 Mcg SL DAILY Amlodipine (Amlodipine Besylate) 5 Mg Tab 5 Mg PO DAILY Zantac (Ranitidine HCl) 150 Mg Tab 150 Mg PO BID Metoprolol Tartrate 50 Mg Tab 50 Mg PO BID Diovan (Valsartan) 80 Mg Tab 1 Tab PO TID Allergies: Coded Allergies: cat dander (Verified Allergy, Severe, 06/04/17) Active Ordered Medications Current Medications Medications (Trade) Dose Ordered Sig/Chucky Route Start Time Stop Time Status Last Admin Sodium Chloride 1,000 ml @ 75 mls/hr [id number] IV 06/05/17 00:42 06/05/17 00:42 (NS Flush) 2 ml UNSCH PRN IV FLUSH 06/05/17 00:45 (NS Flush) 2 ml BID IV FLUSH 06/05/17 09:00 (Tylenol) 650 mg Q4H PRN PO 06/05/17 00:45 (Zofran Inj) 4 mg Q6H PRN IVP 06/05/17 00:45 (Heparin Inj) 5,000 units Q12H SQ 06/05/17 00:45 (Narcan Inj) 0.4 mg UNSCH PRN IV PUSH 06/05/17 00:45 (Dayanara-Colace) 1 tab BID PO 06/05/17 09:00 (Milk Of Magnesia Liq) 30 ml Q12H PRN PO 06/05/17 00:45 (Senokot) 17.2 mg Q12H PRN PO 06/05/17 00:45 (Dulcolax Supp) 10 mg DAILY PRN RECTAL 06/05/17 00:45 (Lactulose Liq) 30 ml DAILY PRN PO 06/05/17 00:45 Levofloxacin/ Dextrose 150 ml @ 100 mls/hr Q48H IV 06/07/17 01:00 Family History Mother with Hypertension. Social History Lives alone Alcohol abuse wine with dinner Denies other toxic habits. Physical Exam Vital Signs Vital Signs Date Time Temp Pulse Resp B/P (MAP) Pulse Ox O2 Delivery O2 Flow Rate FiO2 06/05/17 08:23 93 21 06/05/17 02:36 06/05/17 02:30 96.2 108 20 129/73 (91) 93 06/05/17 01:13 98 Nasal Cannula 2.00 06/05/17 00:24 102 16 126/59 (81) 97 Nasal Cannula 2.00 06/04/17 22:39 102 18 151/66 (94) 96 Nasal Cannula 2.00 06/04/17 21:52 18 100 Nasal Cannula 2.00 06/04/17 21:35 98.1 112 18 142/59 (86) 100 Physical Exam GENERAL: Patient has a laceration contusion hematoma to the occiput of her right side of her head SKIN: Warm and dry. HEAD: Atraumatic. Normocephalic. EYES: Pupils equal and round. No scleral icterus. No injection or drainage. ENT: No nasal bleeding or discharge. Mucous membranes pink and moist. NECK: Trachea midline. No JVD. CARDIOVASCULAR: Regular rate and rhythm. Patient is tachycardic at 123 few PVCs on monitor RESPIRATORY: No accessory muscle use. Clear to auscultation. Breath sounds equal bilaterally. Patient is denies shortness of breath GASTROINTESTINAL: Abdomen soft, non-tender, nondistended. Hepatic and splenic margins not palpable. MUSCULOSKELETAL: Extremities without clubbing, cyanosis, or edema. No obvious deformities. NEUROLOGICAL: Awake and alert. No obvious cranial nerve deficits. Motor grossly within normal limits. Five out of 5 muscle strength in the arms and legs. Normal speech. PSYCHIATRIC: Appropriate mood and affect; insight and judgment normal. Laboratory Laboratory Tests Test 06/04/17 22:25 06/05/17 00:10 White Blood Count 28.8 Red Blood Count 4.33 Hemoglobin 12.6 Hematocrit 38.9 Mean Corpuscular Volume 89.9 Mean Corpuscular Hemoglobin 29.2 Mean Corpuscular Hemoglobin Concent 32.4 Red Cell Distribution Width 13.2 Platelet Count 521 Mean Platelet Volume 7.4 Neutrophils (%) (Auto) 79.7 Lymphocytes (%) (Auto) 5.6 Monocytes (%) (Auto) 11.1 Eosinophils (%) (Auto) 0.3 Basophils (%) (Auto) 3.3 Neutrophils # (Auto) 22.9 Lymphocytes # (Auto) 1.6 Monocytes # (Auto) 3.2 Eosinophils # (Auto) 0.1 Basophils # (Auto) 1.0 CBC Comment AUTO DIFF Differential Comment AUTO DIFF CONFIRMED Blood Urea Nitrogen 24 Creatinine 0.92 Random Glucose 103 Total Protein 7.5 Albumin 2.1 Calcium Level 9.1 Alkaline Phosphatase 115 Aspartate Amino Transf (AST/SGOT) 48 Alanine Aminotransferase (ALT/SGPT) 51 Total Bilirubin 0.2 Sodium Level 131 Potassium Level 4.2 Chloride Level 97 Carbon Dioxide Level 22.4 Anion Gap 12 Estimat Glomerular Filtration Rate 58 Troponin I LESS THAN 0.02 Lipase 101 Urine Color YELLOW Urine Turbidity SL CLOUDY Urine pH 5.5 Urine Specific [place] 1.025 Urine Protein TRACE Urine Glucose (UA) NEG Urine Ketones 15 Urine Occult Blood SMALL Urine Nitrite NEG Urine Bilirubin NEG Urine Urobilinogen 0.2 Urine Leukocyte Esterase LARGE Urine RBC 3-5 Urine WBC 20-24 Urine Squamous Epithelial Cells > 8 Urine Bacteria MANY Microscopic Urinalysis Comment CULTURE INDICATED Date/Time Source Procedure Growth Status 06/04/17 22:25 Blood Peripheral Aerobic Blood Culture Pending Received 06/04/17 22:25 Blood Peripheral Anaerobic Blood Culture Pending Received 06/05/17 00:10 Urine Clean Catch Urine Culture Pending Received Result Diagram: 06/04/175 06/04/17 2225 Imaging Last Impressions Chest CT 06/05/17 0000 Signed Impressions: Service Date/Time: Monday, June 05, 2017 00:46 - CONCLUSION: 1. Right basilar consolidation with associated partially loculated right-sided effusion. 2. Trace pericardial effusion. 3. Severe degenerative changes in the left shoulder. 4. 5 cm cyst in the anterior midpole of the left kidney. Сергей Van MD Head CT 06/04/17 0000 Signed Impressions: Service Date/Time: Sunday, June 04, 2017 21:56 - CONCLUSION: 1. No bleed or evidence of an acute ischemic event. 2. Ventriculomegaly unchanged. 3. Chronic white matter changes are again seen. MD Loki Lambert VTE Risk Assessment Caprini VTE Risk Assessment: No/Low Risk (score <= 1) Caprini Risk Assessment Model Point Value = 1 Point Value = 2 Point Value = 3 Point Value = 5 Age 41-60 Minor surgery BMI > 25 kg/m2 Swollen legs Varicose veins or History of unexplained or recurrent spontaneous Oral contraceptives or hormone replacement Sepsis (< 1 month) Serious lung disease, including pneumonia (< 1 month) Abnormal pulmonary function Acute myocardial infarction Congestive heart failure (< 1 month) History of inflammatory bowel disease Medical patient at bed rest Age 61-74 Arthroscopic surgery Major open surgery (> 45 min) Laparoscopic surgery (> 45 min) Malignancy Confined to bed (> 72 hours) Immobilizing plaster cast Central venous access Age >= 75 History of VTE Family history of VTE Factor V Leiden Prothrombin [id number] Lupus anticoagulant Anticardiolipin antibodies Elevated serum homocysteine Heparin-induced thrombocytopenia Other congenital or acquired thrombophilia Stroke (< 1 month) Elective arthroplasty Hip, pelvis, or leg fracture Acute spinal cord injury (< 1 month) Prophylaxis Regimen Total Risk Factor Score Risk Level Prophylaxis Regimen 0-1 Low Early ambulation 2 Moderate Order ONE of the following: *Sequential Compression Device (SCD) *Heparin 5000 units SQ BID 3-4 Higher Order ONE of the following medications: *Heparin 5000 units SQ TID *Enoxaparin/Lovenox 40 mg SQ daily (WT < 150 kg, CrCl > 30 mL/min) *Enoxaparin/Lovenox 30 mg SQ daily (WT < 150 kg, CrCl > 10-29 mL/min) *Enoxaparin/Lovenox 30 mg SQ BID (WT < 150 kg, CrCl > 30 mL/min) AND/OR *Sequential Compression Device (SCD) 5 or more Highest Order ONE of the following medications: *Heparin 5000 units SQ TID (Preferred with Epidurals) *Enoxaparin/Lovenox 40 mg SQ daily (WT < 150 kg, CrCl > 30 mL/min) *Enoxaparin/Lovenox 30 mg SQ daily (WT < 150 kg, CrCl > 10-29 mL/min) *Enoxaparin/Lovenox 30 mg SQ BID (WT < 150 kg, CrCl > 30 mL/min) AND *Sequential Compression Device (SCD) Assessment and Plan Assessment and Plan 1. Sepsis patient with Leukocytosis 28 and Tachycardia 112, found positive Chest X ray for .Right basilar consolidation, loculated pleural effusion has Hyponatremia, following blood cultures, has positive Urinalysis, following Urine culture, will switch from Levaquin to Cefepime and Azithromycin asked for Laboratory to be complete, added Bronchodilator, Mucolytic and incentive spirometry. Legionella antigen, Pneumococcal antigen Sputum culture, 2. Dehydration giving one bolus of 500 ml of fluid and increase to 100 ml per hour daily 3. Syncope probable vasovagal secondary to her Sepsis, dehydration but will check, Echocardiogram, Carotid ultrasound, Cardiac monitoring. 4. OA by history 5. Stress incontinence to continue Home medicines 6. Hypertension to continue Home medicines. DVT prophylaxis the patient has history of brain hemorrhage will continue SCDs and rapid ambulation asked for PT and OT today. GI prophylaxis with Famotidine. manager mental health consult Code Status Full code Discussed Condition With Patient Physician Certification 2 Midnight Certification Type: Admission for Inpatient Services Order for Inpatient Services The services are ordered in accordance with Medicare regulations or non- Medicare payer requirements, as applicable. In the case of services not specified as inpatient-only, they are appropriately provided as inpatient services in accordance with the 2-midnight benchmark. Estimated LOS (days): 3 days is the estimated time the patient will need to remain in the hospital, assuming treatment plan goals are met and no additional complications. Post-Hospital Plan: Not yet determined Skyler Jones MD Jun 05, 2017 08:52
[2017-06-05] MEDS: METOPROLOL TARTRATE 50 MG TAB PO SCH ×2 (09:00→22:33)
[2017-06-05] MEDS: SODIUM CHLORIDE 0.9% FLUSH 10 ML FLUSH IV FLUSH SCH ×2 (09:00→22:33)
[2017-06-05] MEDS: VALSARTAN 80 MG TAB PO SCH ×3 (09:00→17:11)
[2017-06-05] MEDS: MULTIVITAMIN TAB PO SCH (09:15)
[2017-06-05] MEDS ORDERED: SODIUM CHLORID 0.9% 500 ML INJ 500 ML IV ONE (10:30)
[2017-06-05] MEDS: RESP: ALBUTEROL 2.5 MG/IPRATROPIUM 0.5 MG NEB (SCH) NEB ×4 (11:22→23:29)
[2017-06-05] MEDS: DOCUSATE SODIUM 50 MG/SENNA 8.6 MG TAB PO SCH ×2 (12:08→22:33)
[2017-06-05] MEDS: CYANOCOBALAMIN 1,000 MCG TAB PO SCH (12:08)
[2017-06-05] MEDS: BENZOCAINE 6 MG/MENTHOL 10 MG LOZENGE BUCCAL PRN ×3 (12:08→18:24)
[2017-06-05] MEDS: FAMOTIDINE 20 MG TAB PO SCH ×2 (12:08→22:33)
[2017-06-05] MEDS: amLODIPine BESYLATE 5 MG TAB PO SCH (12:08)
[2017-06-05] MEDS: AZITHROMYCIN INJ 500 MG in SODIUM CHLOR 0.9% 250 ML INJ 250 ML IV SCH (12:12)
[2017-06-05] MEDS: CEFEPIME INJ 1,000 MG in SODIUM CHLORIDE 0.9% INJ 100 ML IV SCH ×2 (12:13→22:33)
--- NOTE | 2017-06-05 14:07 | RADRPT ---
EXAM DATE/TIME: 06/05/2017 12:51 [facility] COMPARISON: No previous studies available for comparison. INDICATIONS : Syncope. MEDICAL HISTORY : Hypertension. Glasses. Dentures. Ovarian cysts. Urinary incontinence. Arthritis. Intraventricular hemmorage. SURGICAL HISTORY : Appendectomy. Wisdome teeth removed. Bilateral hip replacement. Bilateral elbow surgery. Right sh oulder surgery. Left knee replacement. ENCOUNTER: Initial ACUITY: 1 day PAIN SCORE: 1/10 LOCATION: Bilateral neck PEAK SYSTOLIC VELOCITIES (cm/sec): ICA/CCA RATIO: Right: 1.7 Left: 0.8 ICA: Right: 112.1 Left: 76.7 CCA: Right: 66.9 Left: 96.4 ECA: Right: 131.8 Left: 131.8 VERTEBRAL: Right: 56.8 antegrade Left: 62.0 antegrade Elevated flow velocities and ICA/CCA ratios have been found to correlate with increased degrees of vessel stenosis, calculated as percentage of diameter relative to a normal segment of distal ICA/CCA FINDINGS: RIGHT CAROTID: No significant stenosis is visualized. The waveforms are within normal limits. LEFT CAROTID: No significant stenosis is visualized. The waveforms are within normal limits. VERTEBRAL ARTERIES: Antegrade flow is seen in both vertebral arteries. MISCELLANEOUS: Moderate atherosclerosis identified within the region of the carotid bulbs. CONCLUSION: Moderate atherosclerosis identified within the region of the carotid bulbs. No significant stenosis i s visualized.. Ryanne Barton MD on June 05, 2017 at 14:02 Board Certified Radiologist. This report was verified electronically.
[2017-06-05 14:27] LABS: CHOLESTEROL 89 MG/DL (120-200); TRIGLYCERIDES 64 MG/DL (42-150)
[2017-06-05 14:52] LABS: CHOLESTEROL/ HDL RATIO 2.93 RATIO; FREE T4 1.62 NG/DL (0.76-1.46); HDL CHOLESTEROL 30.3 MG/DL (40.0-60.0); LDL CHOLESTEROL 46 MG/DL (0-99)
[2017-06-05 14:54] LABS: FOLATE GREATER THAN 20.0 NG/ML (3.1-17.5)
[2017-06-05] MEDS: guaiFENesin E.R. 600 MG TAB PO SCH (22:32)
[2017-06-05] MEDS ORDERED: ZOLPIDEM TARTRATE 5 MG TAB PO ONE (22:45)
[2017-06-06] VITALS (10 sets, daily range): BP systolic 127–176; BP diastolic 58–81; PULSE 98–128; RESP 16–22; TEMP 97–98.3; O2SAT 90–95
[2017-06-06] MEDS: BENZOCAINE 6 MG/MENTHOL 10 MG LOZENGE BUCCAL PRN (03:15)
[2017-06-06] MEDS: CEFEPIME INJ 1,000 MG in SODIUM CHLORIDE 0.9% INJ 100 ML IV SCH ×3 (03:18→21:05)
[2017-06-06] MEDS: RESP: ALBUTEROL 2.5 MG/IPRATROPIUM 0.5 MG NEB (SCH) NEB ×5 (03:39→20:35)
[2017-06-06 06:55] LABS: AUTOMATED NEUTROPHIL # 17.7 TH/MM3 (1.8-7.7); BASOPHIL # 0.1 TH/MM3 (0-0.2); BASOPHIL % 0.6 % (0.0-2.0); EOSINOPHIL % 0.2 % (0.0-4.0); HEMOGLOBIN 11.3 GM/DL (11.6-15.3); LYMPH % 2.8 % (9.0-44.0); LYMPHOCYTE # 0.6 TH/MM3 (1.0-4.8); MEAN CELL VOLUME 90.2 FL (80.0-100.0); MEAN CORPUSCULAR HGB CONC 33.3 % (32.0-36.0); MEAN PLATELET VOLUME 7.7 FL (7.0-11.0); MONO % 9.5 % (0.0-8.0); MONOCYTE # 1.9 TH/MM3 (0-0.9); NEUT % 86.9 % (16.0-70.0); PLATELET COUNT 439 TH/MM3 (150-450); RED BLOOD COUNT 3.77 MIL/MM3 (4.00-5.30); RED CELL DISTRIBUTION WIDTH 12.8 % (11.6-17.2); WHITE BLOOD COUNT 20.3 TH/MM3 (4.0-11.0)
[2017-06-06] MEDS ORDERED: PILL SPLITTER OTHER PRN (07:30)
[2017-06-06 07:31] LABS: BICARBONATE 25.1 MEQ/L (21.0-32.0); CREATININE 0.49 MG/DL (0.50-1.00)
[2017-06-06] MEDS: VALSARTAN 80 MG TAB PO SCH ×3 (09:00→16:37)
[2017-06-06] MEDS: SODIUM CHLOR 0.9% 1000 ML INJ 1,000 ML IV SCH ×2 (09:06→19:06)
[2017-06-06] MEDS: CYANOCOBALAMIN 1,000 MCG TAB PO SCH (09:52)
[2017-06-06] MEDS: METOPROLOL TARTRATE 50 MG TAB PO SCH ×2 (09:52→21:06)
[2017-06-06] MEDS: MULTIVITAMIN TAB PO SCH (09:52)
[2017-06-06] MEDS: FAMOTIDINE 20 MG TAB PO SCH ×2 (09:53→21:06)
[2017-06-06] MEDS: guaiFENesin E.R. 600 MG TAB PO SCH ×2 (09:53→21:06)
[2017-06-06] MEDS: amLODIPine BESYLATE 5 MG TAB PO SCH (09:53)
[2017-06-06] MEDS: SODIUM CHLORIDE 0.9% FLUSH 10 ML FLUSH IV FLUSH SCH ×2 (09:53→21:05)
[2017-06-06] MEDS: DOCUSATE SODIUM 50 MG/SENNA 8.6 MG TAB PO SCH ×2 (09:53→21:00)
[2017-06-06 10:12] LABS: HEMOGLOBIN A1C 6.5 % (4.3-6.0)
[2017-06-06] MEDS: AZITHROMYCIN INJ 500 MG in SODIUM CHLOR 0.9% 250 ML INJ 250 ML IV SCH (11:00)
[2017-06-06] MEDS: HEPARIN SODIUM - SQ 10,000 UNITS/ML VIAL SQ SCH (12:45)
[2017-06-06] MEDS ORDERED: RESP: ALBUTEROL 2.5 MG/IPRATROPIUM 0.5 MG NEB (PRN) NEB (13:15)
--- NOTE | 2017-06-06 13:16 | HHI.PR ---
Subjective Remarks Patient seen and examined today for follow-up on sepsis, pneumonia, pleural effusion. Patient states that she still having a pretty bad cough. Stating that she is wheezing. She cannot get comfortable. Patient remains afebrile. However, patient still tachycardic, significant leukocytosis. Patient still with septic criteria. Objective Vitals Vital Signs Date Time Temp Pulse Resp B/P (MAP) Pulse Ox O2 Delivery O2 Flow Rate FiO2 06/06/17 08:00 97.0 100 18 138/81 (100) 92 06/06/17 07:30 95 Nasal Cannula 2.00 06/06/17 03:12 98.0 101 18 127/58 (81) 94 06/06/17 00:07 98.3 98 16 137/65 (89) 93 06/05/17 20:58 98.0 109 18 169/79 (109) 95 06/05/17 19:50 130 06/05/17 19:48 95 Nasal Cannula 2.00 06/05/17 18:37 97.0 120 14 132/63 (86) 97 I/O 06/05/17 06/05/17 06/05/17 06/06/17 06/06/17 06/06/17 07:00 15:00 23:00 07:00 15:00 23:00 Intake Total 890 ml 118 ml 729 ml 645 ml Output Total 100 ml Balance 790 ml 118 ml 729 ml 645 ml Intake Oral 240 ml 118 ml 354 ml IV Total 650 ml 375 ml 645 ml Output Urine Total 100 ml # Voids 2 2 5 # Bowel Movements 0 2 0 Result Diagram: 06/06/17 0600 06/06/17 0600 Objective Remarks GENERAL: Well-developed, well-nourished, in no acute distress. alert HEENT: Head is normocephalic without any lesions or masses noted. Facial features are symmetric. Eyes: Extraocular muscles are intact. Conjunctivae were clear. NECK: Supple without any masses. Trachea midline no deviation. No JVD, CARDIAC: Regular rhythm, regular rate. S1/S2 are heard. No murmurs gallops or rubs. LUNGS: Diminished breath sounds noted bilaterally, expiratory wheeze noted, no rhonchi or rales. No use of accessory muscles on inspiration or expiration. ABDOMEN: Soft, nontender. Nondistended. Bowel sounds heard in all 4 quadrants. No organomegaly or masses. Negative rebound, negative guarding EXTREMITIES: No edema, pulses are equal bilaterally. No cyanosis or clubbing NEUROLOGY: Mood and affect appear appropriate. Cranial nerves II through XII grossly intact. Moving all extremities, speech is clear Urinary Catheter: No Vascular Central Line Catheter: No A/P Assessment and Plan Sepsis Patient still meets criteria with leukocytosis, tachycardia, pneumonia, urinary tract infection Patient continued on cefepime, Zithromax Need to check influenza testing Blood cultures negative for 2 days Legionella/streptococcal antigen negative Sputum culture rare growth of normal respiratory bertrand Urine culture showed immature growth Right basilar pneumonia with partially loculated right sided effusion Continue antibiotics as above Upon review of CT of does appear the patient does have significant right sided loculated pleural effusion that is amenable to thoracentesis, Request ultrasound-guided thoracentesis, check fluid for cell count, glucose , protein, cytology, culture Continue O2 supplementation maintain O2 sats greater than 92% Continue nebulizer treatments Continue Mucinex Syncopal episode unknown etiology could be secondary to vasovagal, sepsis, hypoxia CT the brain did not indicate any acute abnormality Carotid ultrasound shows moderate atherosclerosis with no significant stenosis visualized awaiting echocardiogram Monitor telemetry Leukocytosis, left shift likely secondary to infection Continue monitor CBC Hypertension Blood pressure stable home medications have been continued DVT prevention sequential compression devices, avoid chemical prophylaxis secondary history of brain hemorrhage Asif Wan Jun 06, 2017 13:16
[2017-06-06 13:58] LABS: PROTHROMBIN TIME - PATIENT 10.6 SEC (9.8-11.6)
--- NOTE | 2017-06-06 14:53 | RADRPT ---
EXAM DATE/TIME: 06/06/2017 14:41 [facility] COMPARISON: CHEST PA & LAT, June 03, 2017, 13:14. INDICATIONS : Status post thoracentesis MEDICAL HISTORY : Hypertension. SURGICAL HISTORY : Appendectomy. ENCOUNTER: Subsequent ACUITY: 1 day PAIN SCORE: 0/10 LOCATION: Bilateral chest FINDINGS: Patient is post attempted thoracentesis on the right. This demonstrates continued effusion and atelec tasis on the right. There is consolidation of the right lower lobe. No pneumothorax is seen. There is a small effusion on the left. The aortic arch appears dilated. The osseous structures demonstrate shoulder arthroplasty on the right. There degenerative changes on the left. CONCLUSION: 1. No pneumothorax identified following attempted right thoracentesis. Overall appearance of the pare nchyma similar. Domingo Mckeon MD on June 06, 2017 at 14:50 Board Certified Radiologist. This report was verified electronically.
--- NOTE | 2017-06-06 15:42 | RADRPT ---
EXAM DATE/TIME: 06/06/2017 13:52 [facility] COMPARISON: US CAROTID ARTERIES, June 05, 2017, 12:51. INDICATIONS : Right pleural effusion. MEDICAL HISTORY : Hypertension. Glasses. Dentures. Ovarian cysts. Urinary incontinence. Arthritis. Intraventricular hem morage. SURGICAL HISTORY : Appendectomy. Wisdome teeth removed. Bilateral hip replacement. Bilateral elbow surgery. Right should er surgery. Left knee replacement. ENCOUNTER: Initial ACUITY: 1 day PAIN SCORE: 4/10 LOCATION: Right chest FLUID: TECHNIQUE: 1. Ultrasound guidance for thoracentesis. 2. Thoracentesis. The risks, benefits, and alternatives to ultrasound guided thoracentesis were explained to the patien t in lay simple terms. The risk included but were not limited to bleeding, infection, emergent surger y and rarely . Written and verbal informed consent was obtained. The back was examined with ultrasound. There was effusion around the right lung which appeared quite loculated. We were requested to obtain a sample of this loculated fluid for diagnostic purposes. The best site identified by ultrasound was localized. The area was prepped and draped in the usual st erile fashion. The skin was anesthetized with 10 cc of 1% lidocaine. A safety centesis needle was adv anced through skin into the chest. No fluid could be obtained. The needle was withdrawn and readvance d at slightly different angle. Again, no fluid could be obtained. The needle was removed and a dress ing was applied. Immediately post procedure, the patient coughed up two quarters size blood clots. The patient was all owed to remain in the ultrasound procedure room under observation for approximately 30 minutes. The p atient did cough up a small amount of blood-tinged sputum during this time. This appeared to clear at the end of the 30 minutes. A chest x-ray was obtained. The post procedure chest x-ray examination with similar in appearance to the patient's preprocedure exam. There is no pneumothorax evident. Report was called to Connor Meyers the patient's PA. The nursing staff was advised to closely observe this patient. Followup chest x-ray in 2 hours will be performed. CONCLUSION: 1. Attempted ultrasound-guided thoracentesis. No fluid could be obtained due to the extensive loculat ed nature of the patient's effusion. 2. Post procedure the patient coughed up a small amount of blood. The patient was back to baseline at approximately 5-10 minutes. The patient was transferred back to her room in stable condition. 3. Chest x-ray in 2 hours will be ordered. Domingo Mckeon MD on June 06, 2017 at 15:30 Board Certified Radiologist. This report was verified electronically.
--- NOTE | 2017-06-06 16:42 | ECHRPT ---
Indication: CARDIOMYOPATHY CONCLUSIONS Normal left ventricular size. Mild concentric left ventricular hypertrophy. The left ventricular systolic function is normal with an estimated ejection fraction in the range of 60-65%. The left atrial size is mildly dilated. The right atrial size is mildly dilated. Wimb-iw-nxpftuzt mitral valve regurgitation. Mild mitral annular calcification. Aortic valve sclerosis is present. There is mild to moderate tricuspid valve regurgitation. Severe pulmonary hypertension. The estimated pulmonary arterial pressure is 75 mmHg. BP: 138 / 81 HR: 100 Rhythm: Sinus, PACs MEASUREMENTS (Male / Female) Normal Values Technical Quality:Fair 2D ECHO LVOT Diameter 1.9 cm Aortic Root Diameter 2.6 cm M-MODE AV Cusp Separation MM 1.4 cm DOPPLER AV Peak Velocity 216.0 cm/s AV Peak Gradient 18.7 mmHg AV Mean Gradient 9.5 mmHg AV Velocity Time Integral 29.8 cm LVOT Peak Velocity 83.2 cm/s LVOT Peak Gradient 2.8 mmHg LVOT Velocity Time Integral 13.9 cm AV Area Cont Eq vti 1.3 cm AV Area Cont Eq pk 1.1 cm Mitral E Point Velocity 116.0 cm/s LV E' Lateral Velocity 9.7 cm/s Mitral E to LV E' Lateral Ratio 11.9 LV E' Septal Velocity 7.6 cm/s Mitral E to LV E' Septal Ratio 15.4 TR Peak Velocity 404.0 cm/s TR Peak Gradient 65.3 mmHg Right Atrial Pressure 10.0 mmHg Pulmonary Artery Systolic Pressu 75.3 mmHg Right Ventricular Systolic Press 75.3 mmHg PV Peak Velocity 76.3 cm/s PV Peak Gradient 2.3 mmHg FINDINGS LEFT VENTRICLE Normal left ventricular size. Mild concentric left ventricular hypertrophy. RIGHT VENTRICLE Normal right ventricular size and systolic function. LEFT ATRIUM The left atrial size is mildly dilated. RIGHT ATRIUM The right atrial size is mildly dilated. ATRIAL SEPTUM No atrial level shunt is demonstrated by color flow Doppler interrogation. AORTA The aortic root and proximal ascending aorta are normal in size on limited imaging. MITRAL VALVE [id number] mitral valve regurgitation. Mild mitral annular calcification. AORTIC VALVE Aortic valve sclerosis is present. TRICUSPID VALVE There is mild to moderate tricuspid valve regurgitation. The estimated pulmonary arterial pressure is 75.3 mmHg. PULMONARY VALVE No pulmonary valve regurgitation or stenosis. VESSELS The inferior vena cava is normal in size. PERICARDIUM No pericardial effusion. Juancho Tadeo MD, FACC (Electronically Signed) Final Date:06 June 2017 16:41
--- NOTE | 2017-06-06 18:03 | RADRPT ---
EXAM DATE/TIME: 06/06/2017 17:01 [facility] COMPARISON: CHEST EXPIRATION ONLY, June 06, 2017, 14:41. INDICATIONS : Post thoracentesis MEDICAL HISTORY : Hypertension. SURGICAL HISTORY : Appendectomy. ENCOUNTER: Subsequent ACUITY: 1 day PAIN SCORE: 2/10 LOCATION: Bilateral chest FINDINGS: Single view chest demonstrate cardiomegaly with consolidation and right basilar effusion. Examination is unchanged from previous timed at 1441 hrs. There is diffuse interstitial infiltrate throughout both lungs. The patient is post right shoulder arthroplasty Advanced degenerative changes in the left shoulder. CONCLUSION: 1. Stable exam demonstrate continued large right-sided pleural effusion and consolidation. Domingo Mckeon MD on June 06, 2017 at 18:00 Board Certified Radiologist. This report was verified electronically.
[2017-06-06] MEDS ORDERED: LORazepam 2 MG/ML VIAL IV PUSH ONE (21:00)
[2017-06-07] VITALS (15 sets, daily range): BP systolic 117–188; BP diastolic 51–102; PULSE 88–124; RESP 18–38; TEMP 97.6–98.7; O2SAT 90–100
[2017-06-07] MEDS ORDERED: LEVOFLOXACIN 750 MG PREMIX INJ 150 ML IV SCH (01:00)
[2017-06-07] MEDS ORDERED: LORazepam 2 MG/ML VIAL IV PUSH ONE (02:30)
[2017-06-07] MEDS: CEFEPIME INJ 1,000 MG in SODIUM CHLORIDE 0.9% INJ 100 ML IV SCH ×3 (02:32→20:55)
[2017-06-07] MEDS: SODIUM CHLOR 0.9% 1000 ML INJ 1,000 ML IV SCH (02:32)
[2017-06-07 04:57] LABS: AUTOMATED NEUTROPHIL # 21.6 TH/MM3 (1.8-7.7); BASOPHIL # 0.3 TH/MM3 (0-0.2); BASOPHIL % 1.2 % (0.0-2.0); EOSINOPHIL # 0.1 TH/MM3 (0-0.4); EOSINOPHIL % 0.4 % (0.0-4.0); HEMATOCRIT 34.3 % (35.0-46.0); HEMOGLOBIN 11.8 GM/DL (11.6-15.3); MEAN CELL VOLUME 89.6 FL (80.0-100.0); MEAN CORPUSCULAR HEMOGLOBIN 30.7 PG (27.0-34.0); MEAN CORPUSCULAR HGB CONC 34.3 % (32.0-36.0); MEAN PLATELET VOLUME 7.4 FL (7.0-11.0); MONO % 8.8 % (0.0-8.0); MONOCYTE # 2.2 TH/MM3 (0-0.9); NEUT % 85.6 % (16.0-70.0); PLATELET COUNT 527 TH/MM3 (150-450); RED BLOOD COUNT 3.83 MIL/MM3 (4.00-5.30); RED CELL DISTRIBUTION WIDTH 13.6 % (11.6-17.2); WHITE BLOOD COUNT 25.2 TH/MM3 (4.0-11.0)
[2017-06-07 05:10] LABS: CALCIUM 8.1 MG/DL (8.5-10.1)
[2017-06-07 05:11] LABS: BICARBONATE 26.4 MEQ/L (21.0-32.0); MAGNESIUM 1.9 MG/DL (1.5-2.5)
[2017-06-07 05:14] LABS: CREATININE 0.41 MG/DL (0.50-1.00)
[2017-06-07] MEDS: RESP: ALBUTEROL 2.5 MG/IPRATROPIUM 0.5 MG NEB (SCH) NEB ×3 (07:54→20:45)
[2017-06-07 08:21] LABS: TOXIC GRANULATION 1+ (NORMAL)
[2017-06-07] MEDS: SODIUM CHLORIDE 0.9% FLUSH 10 ML FLUSH IV FLUSH SCH ×2 (08:49→20:56)
[2017-06-07] MEDS: amLODIPine BESYLATE 5 MG TAB PO SCH (08:50)
[2017-06-07] MEDS: guaiFENesin E.R. 600 MG TAB PO SCH ×2 (08:50→20:56)
[2017-06-07] MEDS: METOPROLOL TARTRATE 50 MG TAB PO SCH ×2 (08:50→20:55)
[2017-06-07] MEDS: DOCUSATE SODIUM 50 MG/SENNA 8.6 MG TAB PO SCH ×2 (08:51→20:55)
[2017-06-07] MEDS: FAMOTIDINE 20 MG TAB PO SCH ×2 (08:51→20:55)
[2017-06-07] MEDS: MULTIVITAMIN TAB PO SCH (08:51)
[2017-06-07] MEDS: CYANOCOBALAMIN 1,000 MCG TAB PO SCH (08:52)
[2017-06-07] MEDS: VALSARTAN 80 MG TAB PO SCH ×3 (08:52→17:56)
--- NOTE | 2017-06-07 09:00 | HHI.PR ---
Subjective Remarks Patient seen and examined today for follow-up on sepsis, pneumonia, urinary tract infection, pleural effusion. Patient apparently decompensated respiratory florez with increasing O2 demand. Patient had to be increased to 6 L nasal cannula maintain O2 saturations. Patient was transferred to ICU for closer monitoring. Upon evaluating the patient's morning she states that she is doing well. She is on 6 L with O2 saturations are 95%. She states that she does feel mildly improved. Patient remains afebrile Objective Vitals Vital Signs Date Time Temp Pulse Resp B/P (MAP) Pulse Ox O2 Delivery O2 Flow Rate FiO2 06/07/17 07:57 93 Nasal Cannula 6.00 06/07/17 04:05 98.7 94 35 118/71 (87) 95 06/07/17 00:03 97.8 100 29 119/54 (75) 98 06/06/17 20:35 95 Nasal Cannula 6.00 06/06/17 20:24 118 06/06/17 20:00 98.0 110 22 176/80 (112) 90 06/06/17 19:45 128 06/06/17 16:00 98.0 121 20 156/70 (98) 92 06/06/17 12:00 98.2 104 20 161/74 (103) 92 I/O 06/06/17 06/06/17 06/06/17 06/07/17 06/07/17 06/07/17 07:00 15:00 23:00 07:00 15:00 23:00 Intake Total 645 ml 700 ml 100 ml Output Total 400 ml Balance 645 ml 700 ml -300 ml Intake Oral 600 ml IV Total 645 ml 100 ml 100 ml Output Urine Total 400 ml # Voids 5 2 6 # Bowel Movements 0 Result Diagram: 06/07/17 0427 06/07/17 0427 Objective Remarks GENERAL: Well-developed, well-nourished, in no acute distress. alert HEENT: Head is normocephalic without any lesions or masses noted. Facial features are symmetric. Eyes: Extraocular muscles are intact. Conjunctivae were clear. NECK: Supple without any masses. Trachea midline no deviation. No JVD, CARDIAC: Regular rhythm, regular rate. S1/S2 are heard. No murmurs gallops or rubs. LUNGS: Diminished breath sounds noted bilaterally right greater than left, expiratory wheeze noted, no rhonchi or rales. No use of accessory muscles on inspiration or expiration. ABDOMEN: Soft, nontender. Nondistended. Bowel sounds heard in all 4 quadrants. No organomegaly or masses. Negative rebound, negative guarding EXTREMITIES: No edema, pulses are equal bilaterally. No cyanosis or clubbing NEUROLOGY: Mood and affect appear appropriate. Cranial nerves II through XII grossly intact. Moving all extremities, speech is clear Urinary Catheter: No Vascular Central Line Catheter: No A/P Assessment and Plan Sepsis Patient still meets criteria with leukocytosis, tachycardia, pneumonia, urinary tract infection Patient continued on cefepime, Zithromax Influenza testing was negative Blood cultures negative for 2 days Legionella/streptococcal antigen negative Sputum culture rare growth of normal respiratory bertrand Urine culture showed immature growth Acute hypoxic respiratory failure Likely secondary to pleural effusion, possible empyema, pneumonia Continue to some rotation maintain O2 sats greater than 90% Continue duo nebs every 6 hours while awake and every 2 hours Start Solu-Medrol 40 mg every [address]-guided thoracentesis which would improve this patient's clinical condition Right basilar pneumonia with partially loculated right sided effusion Continue antibiotics as above Upon review of CT of does appear the patient does have significant right sided loculated pleural effusion that is amenable to thoracentesis, Ultrasound-guided thoracentesis was requested, however was radiologist was unsuccessful in obtaining sample. Dr. Mckeon recommended CT-guided thoracentesis , Awaiting fluid for cell count, glucose, protein, cytology, culture after thoracentesis performed Discussed with radiology who indicated that since the patient is worsening respiratory status, patient will need to be transferred to main hospital for closer monitoring and procedure continue O2 supplementation maintain O2 sats greater than 92% Continue nebulizer treatments Continue Mucinex Syncopal episode unknown etiology could be secondary to vasovagal, sepsis, hypoxia CT the brain did not indicate any acute abnormality Carotid ultrasound shows moderate atherosclerosis with no significant stenosis visualized Echocardiogram indicated ejection fraction 60-65% with dilated ventricles. Severe pulmonary hypertension with PA peak pressure 75 nnhg Monitor telemetry Leukocytosis, left shift, worsening likely secondary to infection Continue monitor CBC Hypertension Blood pressure stable home medications have been continued DVT prevention sequential compression devices, avoid chemical prophylaxis secondary history of brain hemorrhage Asif Wan Jun 07, 2017 09:00
[2017-06-07] MEDS: methylPREDNISolone SOD SUCC 40 MG/1 ML VIAL IV PUSH SCH ×2 (11:26→17:57)
[2017-06-07] MEDS: AZITHROMYCIN INJ 500 MG in SODIUM CHLOR 0.9% 250 ML INJ 250 ML IV SCH (12:26)
[2017-06-07] MEDS ORDERED: LIDOCAINE HCL 1% 20 ML VIAL ONE (15:34)
[2017-06-07] MEDS ORDERED: MIDAZOLAM HCL 2 MG/2 ML VIAL ONE (15:56)
--- NOTE | 2017-06-07 17:51 | RADRPT ---
EXAM DATE/TIME: 06/07/2017 16:40 INDICATIONS : Plueral effusion. SEDATION TIME: 40 minutes MEDICATION(S): 1.) 1.5 midazolam (Versed) IV 2.) 75 fentanyl (Sublimaze) IV DEVICE(S): 1.) 8 Fr [place] FLUID: Total volume of 150 cc of clear, yellow fluid was removed. Fluid was sent for laboratory ordered studies. MEDICAL HISTORY : Hypertension. SURGICAL HISTORY : Appendectomy. shoulder surgery ENCOUNTER: Initial ACUITY: 1 day PAIN SCORE: 0/10 LOCATION: Bilateral chest PROCEDURE: 1. CT guided Right thoracentesis with chest tube placement. 2. Conscious sedation with continuous EKG and oximetry monitoring. 3. EKG and oximetry remained stable throughout the procedure. The site was prepped in sterile fashion. Full sterile technique was used, including cap, mask, steri le gloves and gown and a large sterile sheet. Hand hygiene and 2% chlorhexidine and/or betadine/alco hol prep was utilized per protocol for cutaneous antisepsis. The skin and subcutaneous tissues were infiltrated with local anesthetic solution. Using automated exposure control and adjustment of the m A and/or kV according to patient size, radiation dose was kept as low as reasonably achievable to obt ain optimal diagnostic quality images. DICOM format image data is available electronically for revie w and comparison. Under CT guidance an 18 gauge Aguirre blunt needle was used to puncture into the pleural space in the low right midaxillary line. A Conti wire was coiled in the pleural space. Transcutaneous tract was d ilated and an 8 Tajik nonlocking Madeleine pigtail arc ostomy tube was introduced. The volume of pleur al fluid was aspirated and sent for requested lab evaluation. The tube was then secured with silk sut ure and connected to Pleur-evac suction. Scanning revealed good positioning of the catheter with no e vident complication. The patient tolerated the procedure well and there were no complications. EKG and oximetry remained s table throughout the procedure. The patient was sent to recovery in stable condition. CONCLUSION: Uncomplicated CT-guided thoracostomy tube placement for right pleural effusion. Nikita Stuart MD on June 07, 2017 at 17:47 Board Certified Radiologist. This report was verified electronically.
[2017-06-07 21:34] LABS: PLEURAL FLUID EOS 1 %; PLEURAL FLUID LYMPHS 5 %; PLEURAL FLUID MONOS 1 %; PLEURAL FLUID POLYS (SEGS) 93 %
[2017-06-07 21:41] LABS: PLEURAL FLUID RBC 2488 /MM3 (0-0); PLEURAL FLUID WBC 1618 /MM3 (0-10)
[2017-06-07] MEDS: guaiFENesin/CODEINE SYRUP 200 MG/20 MG/10 ML CUP PO PRN (23:40)
[2017-06-08] VITALS (15 sets, daily range): BP systolic 131–156; BP diastolic 65–82; PULSE 86–120; RESP 18–22; TEMP 97.3–98.2; O2SAT 92–96
--- NOTE | 2017-06-08 00:45 | MB ---
cc: Donnie Villavicencio MD DATE OF CONSULT: 06/07/2017 REQUESTING PHYSICIAN: Dr. Tran. REASON FOR CONSULTATION: Pulmonary management. HISTORY OF PRESENT ILLNESS: Ms. Palacio is a pleasant 86-year-old female with a history of hypertension, arthritis, hip surgery. The patient was not doing well for the last 2 weeks or so. Last , the patient was seen in the emergency room and was diagnosed with pneumonia and pleural effusion. She was sent on antibiotic. Two days later, patient had a fall and she has a laceration on her head. The patient was brought to the emergency room. Laceration was sutured. She had a CT scan of the chest done, which shows that she has a right basilar consolidation with partial loculated right pleural effusion, trace pericardial effusion and 5 cm cyst in the left kidney. The patient had a thoracentesis attempted, which was not successful, then she had a chest tube placed. Pleural fluid was sent for studies, which are pending. Currently, she is on OxyMax and feels better, does not have fever. She has cough, which causes pain in her chest. LABORATORY EVALUATION: Reveals WBC count of 25.2, hemoglobin 11.8, hematocrit 34.3, MCV 89, platelet count 527. Sodium 130, potassium 4.0, chloride 102, CO2 at 26, BUN 9, creatinine 0.41. INR is 1.0. Influenza antigen is negative. Sputum culture is negative. Blood cultures so far are negative. PAST MEDICAL HISTORY: Is significant for history of arthritis, bilateral hip surgery, appendectomy, hypertension, right shoulder surgery. MEDICATIONS: She is currently takin. Famotidine. 2. Solu-Medrol 40 mg q8 hours. 3. Albuterol Atrovent nebulizer treatment. 4. Mucinex 600 mg twice a day. 5. Cefepime 1 gram q8 hours. 6. Zithromax 500 mg a day. 7. Chloraseptic lozenges. 8. Amlodipine 5 mg a day. 9. Metoprolol 50 mg twice a day. 10. Valsartan 80 mg 3 times a day. ALLERGIES: NO KNOWN DRUG ALLERGIES. SOCIAL HISTORY: She is a . No smoking or alcohol. FAMILY HISTORY: Noncontributory. REVIEW OF SYSTEMS: She lives alone. Normally she is up, around and active. Weight is stable. No DVT or pulmonary. No seizure, stroke. PHYSICAL EXAMINATION: GENERAL: Shows a frail elderly female, mildly short of breath. She is on OxyMax. VITAL SIGNS: Blood pressure 150/95, heart rate 112, respirations 18, temperature 98.2. HEENT: Pupils are equal and reactive to light. Oral mucosa and nasal mucosa normal. NECK: Supple with JVD noted. CHEST: Right chest tube in place, has decreased breath sounds on the right side. CARDIOVASCULAR: S1, S2 normal. ABDOMEN: Soft, nontender, nondistended. Bowel sounds are present. EXTREMITIES: No edema. IMPRESSION: 1. Pneumonia. 2. Right loculated pleural effusion, status post chest tube placement. 3. Leukocytosis. 4. Hypertension. 5. Arthritis. PLAN: I discussed with the patient and her son, Dc, who is a respiratory therapist. Will continue the antibiotic. Chest tube to suction and I will start her on cough syrup with codeine. Encourage her to use incentive spirometry and Acapella. Further treatment will depend on the course in the hospital. Thank you, Dr. Tran, for this consult. MD ELVI Mtz/SHANDA , 07:50 PM , 12:44 AM [facility]
[2017-06-08] MEDS: CEFEPIME INJ 1,000 MG in SODIUM CHLORIDE 0.9% INJ 100 ML IV SCH ×3 (03:54→20:25)
[2017-06-08] MEDS: methylPREDNISolone SOD SUCC 40 MG/1 ML VIAL IV PUSH SCH ×3 (04:00→19:24)
[2017-06-08 04:05] LABS: AUTOMATED NEUTROPHIL # 27.1 TH/MM3 (1.8-7.7); BASOPHIL # 0.1 TH/MM3 (0-0.2); BASOPHIL % 0.2 % (0.0-2.0); HEMATOCRIT 35.5 % (35.0-46.0); LYMPH % 2.5 % (9.0-44.0); LYMPHOCYTE # 0.7 TH/MM3 (1.0-4.8); MEAN CELL VOLUME 87.7 FL (80.0-100.0); MEAN CORPUSCULAR HEMOGLOBIN 29.6 PG (27.0-34.0); MEAN CORPUSCULAR HGB CONC 33.8 % (32.0-36.0); MEAN PLATELET VOLUME 6.7 FL (7.0-11.0); MONO % 4.7 % (0.0-8.0); MONOCYTE # 1.4 TH/MM3 (0-0.9); NEUT % 92.6 % (16.0-70.0); PLATELET COUNT 555 TH/MM3 (150-450); RED BLOOD COUNT 4.04 MIL/MM3 (4.00-5.30); WHITE BLOOD COUNT 29.3 TH/MM3 (4.0-11.0)
[2017-06-08 04:33] LABS: BICARBONATE 28.3 MEQ/L (21.0-32.0); CALCIUM 8.8 MG/DL (8.5-10.1); CREATININE 0.53 MG/DL (0.50-1.00); MAGNESIUM 2.3 MG/DL (1.5-2.5)
[2017-06-08] MEDS: guaiFENesin/CODEINE SYRUP 200 MG/20 MG/10 ML CUP PO PRN (04:58)
--- NOTE | 2017-06-08 05:01 | RADRPT ---
EXAM DATE/TIME: 06/08/2017 03:52 [facility] COMPARISON: CHEST EXPIRATION ONLY, June 06, 2017, 17:01. INDICATIONS : Short of breath. Post thoracentesis. MEDICAL HISTORY : Hypertension. SURGICAL HISTORY : Appendectomy. ENCOUNTER: Subsequent ACUITY: 2 days PAIN SCORE: 0/10 LOCATION: Bilateral chest FINDINGS: Persistent meniscal interface in the lower right chest have a similar to prior. Patchy areas of infi ltrate at the left lung base. The upper lungs are clear. No evidence of pneumothorax. Moderate car diomegaly. Right total shoulder arthroplasty advanced degenerative changes of the left shoulder. CONCLUSION: Persistent moderate size right pleural effusion. No evidence of pneumothorax. Patchy infiltrates at the left lung base. Buck Contreras MD on June 08, 2017 at 4:59 Board Certified Radiologist. This report was verified electronically.
[2017-06-08] MEDS: RESP: ALBUTEROL 2.5 MG/IPRATROPIUM 0.5 MG NEB (SCH) NEB ×3 (08:03→20:29)
[2017-06-08] MEDS: amLODIPine BESYLATE 5 MG TAB PO SCH (10:23)
[2017-06-08] MEDS: METOPROLOL TARTRATE 50 MG TAB PO SCH ×2 (10:23→21:28)
[2017-06-08] MEDS: MULTIVITAMIN TAB PO SCH (10:24)
[2017-06-08] MEDS: CYANOCOBALAMIN 1,000 MCG TAB PO SCH (10:24)
[2017-06-08] MEDS: FAMOTIDINE 20 MG TAB PO SCH ×2 (10:25→21:27)
[2017-06-08] MEDS: VALSARTAN 80 MG TAB PO SCH ×3 (10:25→19:24)
[2017-06-08] MEDS: SODIUM CHLORIDE 0.9% FLUSH 10 ML FLUSH IV FLUSH SCH ×2 (10:25→21:27)
[2017-06-08] MEDS: DOCUSATE SODIUM 50 MG/SENNA 8.6 MG TAB PO SCH ×2 (10:25→21:28)
[2017-06-08] MEDS: guaiFENesin E.R. 600 MG TAB PO SCH ×2 (10:25→21:28)
--- NOTE | 2017-06-08 17:22 | HHI.PR ---
Subjective Remarks Follow-up for sepsis, pneumonia, pleural effusion. Patient is currently doing well. She is sitting in her chair. Chest tube in place on the right side. No fever or chills. She is currently on 2 L of oxygen via nasal cannula. Objective Vitals Vital Signs Date Time Temp Pulse Resp B/P (MAP) Pulse Ox O2 Delivery O2 Flow Rate FiO2 06/08/17 16:00 104 06/08/17 15:26 95 Nasal Cannula 2.00 06/08/17 15:21 97.3 18 131/81 (98) 92 06/08/17 15:00 109 06/08/17 11:00 98 Nasal Cannula 3.00 Humidified 06/08/17 11:00 98.2 86 18 142/65 (90) 95 06/08/17 11:00 86 06/08/17 08:03 96 Nasal Cannula 4.00 06/08/17 07:00 97.8 102 18 139/67 (91) 96 06/08/17 07:00 96 Nasal Cannula 6.00 Humidified 06/08/17 07:00 102 06/08/17 03:00 102 06/08/17 03:00 98.1 107 22 152/72 (98) 96 06/08/17 03:00 96 Nasal Cannula 6.00 Humidified 06/07/17 23:00 94 06/07/17 23:00 97.6 95 20 118/57 (77) 93 06/07/17 23:00 95 Nasal Cannula 6.00 Humidified 06/07/17 20:47 97 Nasal Cannula 6.00 06/07/17 20:00 94 Nasal Cannula 6.00 Humidified 06/07/17 19:00 92 Venturi Mask 50 06/07/17 19:00 102 06/07/17 19:00 97.8 102 22 117/51 (73) 92 06/07/17 17:50 114 06/07/17 17:44 98.2 112 18 151/95 (113) 92 06/07/17 17:43 98.2 117 18 151/95 (113) 90 I/O 06/07/17 06/07/17 06/07/17 06/08/17 06/08/17 06/08/17 07:00 15:00 23:00 07:00 15:00 23:00 Intake Total 100 ml 250 ml 50 ml 480 ml Output Total 400 ml 150 ml 600 ml 905 ml Balance -300 ml 100 ml -550 ml -425 ml Intake Oral 50 ml 480 ml IV Total 100 ml 250 ml Output Urine Total 400 ml 150 ml 150 ml 675 ml Chest Tube Drainage Total 450 ml 230 ml # Voids 1 # Bowel Movements 0 Result Diagram: 06/08/17 0350 06/08/17 0350 Imaging Last Impressions Chest X-Ray 06/08/17 0000 Signed Impressions: Service Date/Time: Thursday, June 08, 2017 03:52 - CONCLUSION: Persistent moderate size right pleural effusion. No evidence of pneumothorax. Patchy infiltrates at the left lung base. Buck Contreras MD Chest Tube Insertion 06/07/17 0000 Signed Impressions: Service Date/Time: Wednesday, June 07, 2017 16:40 - CONCLUSION: Uncomplicated CT-guided thoracostomy tube placement for right pleural effusion. Nikita Stuart MD Thoracentesis Ultrasound 06/06/17 0000 Signed Impressions: Service Date/Time: Tuesday, June 06, 2017 13:52 - CONCLUSION: 1. Attempted ultrasound-guided thoracentesis. No fluid could be obtained due to the extensive loculated nature of the patient's effusion. 2. Post procedure the patient coughed up a small amount of blood. The patient was back to baseline at approximately 5-10 minutes. The patient was transferred back to her room in stable condition. 3. Chest x-ray in 2 hours will be ordered. Domingo Mckeon MD Chest CT 06/05/17 0000 Signed Impressions: Service Date/Time: Monday, June 05, 2017 00:46 - CONCLUSION: 1. Right basilar consolidation with associated partially loculated right-sided effusion. 2. Trace pericardial effusion. 3. Severe degenerative changes in the left shoulder. 4. 5 cm cyst in the anterior midpole of the left kidney. Сергей Van MD Carotid Artery Ultrasound 06/05/17 0000 Signed Impressions: Service Date/Time: Monday, June 05, 2017 12:51 - CONCLUSION: Moderate atherosclerosis identified within the region of the carotid bulbs. No significant stenosis is visualized.. Ryanne Barton MD Head CT 06/04/17 0000 Signed Impressions: Service Date/Time: Sunday, June 04, 2017 21:56 - CONCLUSION: 1. No bleed or evidence of an acute ischemic event. 2. Ventriculomegaly unchanged. 3. Chronic white matter changes are again seen. Nikita Aguilar MD Objective Remarks GENERAL: Alert, oriented 3, NAD. SKIN: Warm and dry. HEAD: Normocephalic. EYES: No scleral icterus. No injection or drainage. NECK: Supple, trachea midline. No JVD or lymphadenopathy. CARDIOVASCULAR: Regular rate and rhythm without murmurs, gallops, or rubs. RESPIRATORY: Moderate air entry, no appreciable wheezing. No accessory muscle use. GASTROINTESTINAL: Abdomen soft, non-tender, nondistended. MUSCULOSKELETAL: No cyanosis, or edema. BACK: Nontender without obvious deformity. No CVA tenderness. Procedures Echocardiogram 06/06/2017 Normal left ventricular size. Mild concentric left ventricular hypertrophy. The left ventricular systolic function is normal with an estimated ejection fraction in the range of 60-65%. The left atrial size is mildly dilated. The right atrial size is mildly dilated. [id number] mitral valve regurgitation. Mild mitral annular calcification. Aortic valve sclerosis is present. There is mild to moderate tricuspid valve regurgitation. Severe pulmonary hypertension. The estimated pulmonary arterial pressure is 75 mmHg. A/P Assessment and Plan Ms. Palacio is a pleasant 86-year-old female with a history of hypertension, arthritis who was recently diagnosed in the ED with pneumonia and pleural effusion and was sent home on antibiotics. 2 days later patient fell at home and had a laceration on her head. CT scan of the chest showed right basilar consolidation with partially loculated right pleural effusion. Patient met sepsis criteria and started on IV antibiotics. A right-sided chest tube was also placed for draining pleural effusion. Sepsis Patient met criteria with leukocytosis, tachycardia, pneumonia Patient continued on cefepime, Zithromax Influenza testing was negative Blood cultures negative so far Legionella/streptococcal antigen negative Sputum culture rare growth of normal respiratory bertrand Urine culture showed immature growth Acute hypoxic respiratory failure Severe pulmonary arterial hypertension Likely secondary to pleural effusion, possible empyema, pneumonia Continue to some rotation maintain O2 sats greater than 90% Continue duo nebs every 6 hours while awake and every 2 hours Solu-Medrol 40 mg every 8 hours Right basilar pneumonia with partially loculated right sided effusion Continue antibiotics as above Chest tube in place on the right side. Supplemental O2 requirement is improving currently on 2 L. Continue Mucinex Increased in WBC maybe partially related to steroid. We can likely switch abx from Cefepime and Azithromycin IV to PO Levaquin alone. Will also consider switching to PO prednisone on 06/09/2017. Syncopal episode unknown etiology could be secondary to vasovagal, sepsis, hypoxia CT the brain did not indicate any acute abnormality Carotid ultrasound shows moderate atherosclerosis with no significant stenosis visualized Echocardiogram indicated ejection fraction 60-65% with dilated ventricles. Severe pulmonary hypertension with PA peak pressure 75 nnhg Monitor telemetry DNR. SCDs. Discharge Plan: Once chest tube comes out, patient can likely be discharged Home with home health vs. SNF. Kin Sagastume DO Jun 08, 2017 17:22
--- NOTE | 2017-06-08 18:47 | HHI.PR ---
Subjective Remarks 86 YOWF with Loculated pl eff, s/p right chest tube, Pneumonia Breathing better 02 decreased 3 LNC No fever Feels much better Pl fluid exudate Objective Vital Signs Vital Signs Date Time Temp Pulse Resp B/P (MAP) Pulse Ox O2 Delivery O2 Flow Rate FiO2 06/08/17 16:00 104 06/08/17 15:26 95 Nasal Cannula 2.00 06/08/17 15:21 97.3 18 131/81 (98) 92 06/08/17 15:00 109 06/08/17 11:00 98 Nasal Cannula 3.00 Humidified 06/08/17 11:00 98.2 86 18 142/65 (90) 95 06/08/17 11:00 86 06/08/17 08:03 96 Nasal Cannula 4.00 06/08/17 07:00 97.8 102 18 139/67 (91) 96 06/08/17 07:00 96 Nasal Cannula 6.00 Humidified 06/08/17 07:00 102 06/08/17 03:00 102 06/08/17 03:00 98.1 107 22 152/72 (98) 96 06/08/17 03:00 96 Nasal Cannula 6.00 Humidified 06/07/17 23:00 94 06/07/17 23:00 97.6 95 20 118/57 (77) 93 06/07/17 23:00 95 Nasal Cannula 6.00 Humidified 06/07/17 20:47 97 Nasal Cannula 6.00 06/07/17 20:00 94 Nasal Cannula 6.00 Humidified 06/07/17 19:00 92 Venturi Mask 50 06/07/17 19:00 102 06/07/17 19:00 97.8 102 22 117/51 (73) 92 I/O 06/07/17 06/07/17 06/07/17 06/08/17 06/08/17 06/08/17 06:59 14:59 22:59 06:59 14:59 22:59 Intake Total 100 ml 250 ml 50 ml 480 ml Output Total 400 ml 150 ml 600 ml 905 ml Balance -300 ml 100 ml -550 ml -425 ml Intake Oral 50 ml 480 ml IV Total 100 ml 250 ml Output Urine Total 400 ml 150 ml 150 ml 675 ml Chest Tube Drainage Total 450 ml 230 ml # Voids 1 # Bowel Movements 0 Result Diagram: 06/08/17 03506/08/17 035 Objective Remarks GENERAL: Frail elderly female, NAD SKIN: Warm and dry. HEAD: Normocephalic. EYES: No scleral icterus. No injection or drainage. NECK: Supple, trachea midline. No JVD or lymphadenopathy. CARDIOVASCULAR: Regular rate and rhythm without murmurs, gallops, or rubs. RESPIRATORY: Breath sounds equal bilaterally. No accessory muscle use. Decreased BS right Rt chest tube draining GASTROINTESTINAL: Abdomen soft, non-tender, nondistended. MUSCULOSKELETAL: No cyanosis, or edema. BACK: Nontender without obvious deformity. No CVA tenderness. A/P Assessment and Plan IMPRESSION: 1. Pneumonia. 2. Right loculated pleural effusion, status post chest tube placement. 3. Leukocytosis. 4. Hypertension. 5. Arthritis. PLAN: Cont Abx Chest tube to suction Check cultures Encourage to use Acapella and IS Donnie Villavicencio MD Jun 08, 2017 18:47
[2017-06-09] VITALS (31 sets, daily range): BP systolic 145–168; BP diastolic 69–83; PULSE 88–125; RESP 18; TEMP 97.7–98; O2SAT 93–98
[2017-06-09] MEDS ORDERED: ACETAMINOPHEN 325 MG TAB PO ONE (01:15)
[2017-06-09] MEDS ORDERED: diphenhydrAMINE HCL 50 MG CAP PO ONE (01:15)
[2017-06-09] MEDS: methylPREDNISolone SOD SUCC 40 MG/1 ML VIAL IV PUSH SCH ×2 (01:20→10:36)
[2017-06-09] MEDS: CEFEPIME INJ 1,000 MG in SODIUM CHLORIDE 0.9% INJ 100 ML IV SCH ×2 (05:26→11:50)
[2017-06-09] MEDS: RESP: ALBUTEROL 2.5 MG/IPRATROPIUM 0.5 MG NEB (SCH) NEB ×3 (07:42→20:16)
[2017-06-09] MEDS: AZITHROMYCIN INJ 500 MG in SODIUM CHLOR 0.9% 250 ML INJ 250 ML IV SCH ×2 (08:00→10:36)
[2017-06-09] MEDS: MULTIVITAMIN TAB PO SCH (08:02)
[2017-06-09] MEDS: DOCUSATE SODIUM 50 MG/SENNA 8.6 MG TAB PO SCH ×2 (08:02→20:56)
[2017-06-09] MEDS: FAMOTIDINE 20 MG TAB PO SCH ×2 (08:02→20:56)
[2017-06-09] MEDS: VALSARTAN 80 MG TAB PO SCH ×3 (08:02→17:06)
[2017-06-09] MEDS: guaiFENesin E.R. 600 MG TAB PO SCH ×2 (08:02→20:55)
[2017-06-09] MEDS: amLODIPine BESYLATE 5 MG TAB PO SCH (08:02)
[2017-06-09] MEDS: METOPROLOL TARTRATE 50 MG TAB PO SCH ×2 (08:02→20:55)
[2017-06-09] MEDS: CYANOCOBALAMIN 1,000 MCG TAB PO SCH (08:02)
[2017-06-09] MEDS: SODIUM CHLORIDE 0.9% FLUSH 10 ML FLUSH IV FLUSH SCH ×2 (08:03→20:56)
[2017-06-09] MEDS: guaiFENesin/CODEINE SYRUP 200 MG/20 MG/10 ML CUP PO PRN ×2 (11:53→23:51)
--- NOTE | 2017-06-09 15:18 | HHI.PR ---
Subjective Remarks Follow-up for sepsis, pneumonia, pleural effusion. Right-sided chest tube in place. Patient is currently doing well. No fever or chills. Objective Vitals Vital Signs Date Time Temp Pulse Resp B/P (MAP) Pulse Ox O2 Delivery O2 Flow Rate FiO2 06/09/17 14:33 115 06/09/17 13:03 101 06/09/17 12:15 98 06/09/17 12:03 104 06/09/17 11:30 100 06/09/17 11:30 96 Nasal Cannula 3.00 06/09/17 11:05 97.7 95 18 153/80 (104) 96 06/09/17 11:00 104 06/09/17 10:12 120 06/09/17 10:00 94 06/09/17 09:34 90 06/09/17 09:00 88 06/09/17 08:30 97.9 125 18 152/70 (97) 98 06/09/17 08:30 97 06/09/17 08:30 98 Nasal Cannula 3.00 06/09/17 08:27 122 06/09/17 07:43 98 Nasal Cannula 3.00 06/09/17 06:00 99 06/09/17 05:07 96 06/09/17 04:00 106 06/09/17 03:00 94 Nasal Cannula 3.00 06/09/17 03:00 97.7 102 156/75 (102) 94 06/09/17 03:00 98 06/09/17 02:00 102 06/09/17 01:00 98 06/09/17 00:00 94 06/08/17 23:00 97.8 95 156/74 (101) 96 06/08/17 23:00 88 06/08/17 23:00 96 Nasal Cannula 2.00 06/08/17 22:00 108 06/08/17 21:00 120 06/08/17 20:33 96 Nasal Cannula 3.00 06/08/17 20:00 116 06/08/17 19:00 110 06/08/17 19:00 95 Nasal Cannula 3.00 06/08/17 19:00 98.1 117 151/82 (105) 95 06/08/17 18:00 116 06/08/17 17:00 110 06/08/17 16:00 104 06/08/17 15:26 95 Nasal Cannula 2.00 06/08/17 15:21 97.3 18 131/81 (98) 92 I/O 06/08/17 06/08/17 06/08/17 06/09/17 06/09/17 06/09/17 07:00 15:00 23:00 07:00 15:00 23:00 Intake Total 480 ml 340 ml 540 ml Output Total 905 ml 230 ml 400 ml Balance -425 ml 110 ml 140 ml Intake Oral 480 ml 240 ml 440 ml IV Total 100 ml 100 ml Output Urine Total 675 ml 200 ml 350 ml Chest Tube Drainage Total 230 ml 30 ml 50 ml # Voids 2 # Bowel Movements 0 Result Diagram: 06/08/17 0350 06/08/17 0350 Objective Remarks GENERAL: Alert, oriented 3, NAD. SKIN: Warm and dry. HEAD: Normocephalic. EYES: No scleral icterus. No injection or drainage. NECK: Supple, trachea midline. No JVD or lymphadenopathy. CARDIOVASCULAR: Regular rate and rhythm without murmurs, gallops, or rubs. RESPIRATORY: Moderate air entry, no appreciable wheezing. No accessory muscle use. GASTROINTESTINAL: Abdomen soft, non-tender, nondistended. MUSCULOSKELETAL: No cyanosis, or edema. BACK: Nontender without obvious deformity. No CVA tenderness. Procedures Echocardiogram 06/06/2017 Normal left ventricular size. Mild concentric left ventricular hypertrophy. The left ventricular systolic function is normal with an estimated ejection fraction in the range of 60-65%. The left atrial size is mildly dilated. The right atrial size is mildly dilated. [id number] mitral valve regurgitation. Mild mitral annular calcification. Aortic valve sclerosis is present. There is mild to moderate tricuspid valve regurgitation. Severe pulmonary hypertension. The estimated pulmonary arterial pressure is 75 mmHg. A/P Assessment and Plan Ms. Palacio is a pleasant 86-year-old female with a history of hypertension, arthritis who was recently diagnosed in the ED with pneumonia and pleural effusion and was sent home on antibiotics. 2 days later patient fell at home and had a laceration on her head. CT scan of the chest showed right basilar consolidation with partially loculated right pleural effusion. Patient met sepsis criteria and started on IV antibiotics. A right-sided chest tube was also placed for draining pleural effusion. Sepsis Patient met criteria with leukocytosis, tachycardia, pneumonia Patient continued on cefepime, Zithromax Influenza testing was negative Blood cultures negative so far Legionella/streptococcal antigen negative Sputum culture rare growth of normal respiratory bertrand Urine culture showed immature growth Acute hypoxic respiratory failure Severe pulmonary arterial hypertension Likely secondary to pleural effusion, possible empyema, pneumonia Continue to some rotation maintain O2 sats greater than 90% Continue duo nebs every 6 hours while awake and every 2 hours Solu-Medrol 40 mg every 8 hours Right basilar pneumonia with partially loculated right sided effusion Continue antibiotics as above Chest tube in place on the right side. Supplemental O2 requirement is improving currently on 2 L. Continue Mucinex Increased in WBC maybe partially related to steroid. We will switch antibiotics to Levaquin p.o. Also switch steroid to p.o. Prednisone 10 mg twice daily Syncopal episode unknown etiology could be secondary to vasovagal, sepsis, hypoxia CT the brain did not indicate any acute abnormality Carotid ultrasound shows moderate atherosclerosis with no significant stenosis visualized Echocardiogram indicated ejection fraction 60-65% with dilated ventricles. Severe pulmonary hypertension with PA peak pressure 75 nnhg Monitor telemetry DNR. SCDs. Kin Sagastume DO Jun 09, 2017 3:18 pm
--- NOTE | 2017-06-09 20:09 | HHI.PR ---
Subjective Remarks 86 YOWF with Loculated pl eff, s/p right chest tube, Pneumonia Breathing better 02 decreased 3 LNC No fever Feels much better Pl fluid exudate Chest tube not draining Objective Vital Signs Vital Signs Date Time Temp Pulse Resp B/P (MAP) Pulse Ox O2 Delivery O2 Flow Rate FiO2 06/09/17 18:32 114 06/09/17 17:09 111 06/09/17 16:08 106 06/09/17 15:14 96 Nasal Cannula 3.00 06/09/17 15:14 97.8 113 18 155/72 (99) 96 06/09/17 15:14 110 06/09/17 14:33 115 06/09/17 13:03 101 06/09/17 12:15 98 06/09/17 12:03 104 06/09/17 11:30 100 06/09/17 11:30 96 Nasal Cannula 3.00 06/09/17 11:05 97.7 95 18 153/80 (104) 96 06/09/17 11:00 104 06/09/17 10:12 120 06/09/17 10:00 94 06/09/17 09:34 90 06/09/17 09:00 88 06/09/17 08:30 97.9 125 18 152/70 (97) 98 06/09/17 08:30 97 06/09/17 08:30 98 Nasal Cannula 3.00 06/09/17 08:27 122 06/09/17 07:43 98 Nasal Cannula 3.00 06/09/17 06:00 99 06/09/17 05:07 96 06/09/17 04:00 106 06/09/17 03:00 94 Nasal Cannula 3.00 06/09/17 03:00 97.7 102 156/75 (102) 94 06/09/17 03:00 98 06/09/17 02:00 102 06/09/17 01:00 98 06/09/17 00:00 94 06/08/17 23:00 97.8 95 156/74 (101) 96 06/08/17 23:00 88 06/08/17 23:00 96 Nasal Cannula 2.00 06/08/17 22:00 108 06/08/17 21:00 120 06/08/17 20:33 96 Nasal Cannula 3.00 I/O 06/08/17 06/08/17 06/08/17 06/09/17 06/09/17 06/09/17 07:00 15:00 23:00 07:00 15:00 23:00 Intake Total 480 ml 340 ml 540 ml 830 ml Output Total 905 ml 230 ml 400 ml 450 ml Balance -425 ml 110 ml 140 ml 380 ml Intake Oral 480 ml 240 ml 440 ml 480 ml IV Total 100 ml 100 ml 350 ml Output Urine Total 675 ml 200 ml 350 ml 400 ml Chest Tube Drainage Total 230 ml 30 ml 50 ml 50 ml # Voids 2 2 # Bowel Movements 0 2 Result Diagram: 06/08/17 03506/08/17 0350 Objective Remarks GENERAL: Frail elderly female, NAD SKIN: Warm and dry. HEAD: Normocephalic. EYES: No scleral icterus. No injection or drainage. NECK: Supple, trachea midline. No JVD or lymphadenopathy. CARDIOVASCULAR: Regular rate and rhythm without murmurs, gallops, or rubs. RESPIRATORY: Breath sounds equal bilaterally. No accessory muscle use. Decreased BS right Rt chest tube draining GASTROINTESTINAL: Abdomen soft, non-tender, nondistended. MUSCULOSKELETAL: No cyanosis, or edema. BACK: Nontender without obvious deformity. No CVA tenderness. A/P Assessment and Plan IMPRESSION: 1. Pneumonia. 2. Right loculated pleural effusion, status post chest tube placement. 3. Leukocytosis. 4. Hypertension. 5. Arthritis. PLAN: Cont Abx Chest tube to suction Check cultures Encourage to use Acapella and IS Will reconsult IR for newor repositioning chest tube vs TPA Donnie Villavicencio MD Jun 09, 2017 20:09
[2017-06-09] MEDS: predniSONE 10 MG TAB PO SCH (20:55)
[2017-06-10] VITALS (28 sets, daily range): BP systolic 116–174; BP diastolic 67–77; PULSE 80–127; RESP 18–20; TEMP 98.2–98.5; O2SAT 92–97
[2017-06-10] MEDS: RESP: ALBUTEROL 2.5 MG/IPRATROPIUM 0.5 MG NEB (SCH) NEB ×2 (07:50→14:13)
--- NOTE | 2017-06-10 07:59 | HHI.PR ---
Subjective Remarks Follow-up for sepsis, pneumonia, pleural effusion. Patient is currently doing well. Resting in bed. No fever or chills. Right-sided chest tube in place. Objective Vitals Vital Signs Date Time Temp Pulse Resp B/P (MAP) Pulse Ox O2 Delivery O2 Flow Rate FiO2 06/10/17 07:51 92 Nasal Cannula 2.00 06/10/17 07:38 98.5 107 18 174/77 (109) 97 06/10/17 07:38 97 Nasal Cannula 1.00 06/10/17 07:20 103 06/10/17 06:00 100 06/10/17 05:00 95 06/10/17 04:00 93 06/10/17 03:06 117 06/10/17 03:00 Nasal Cannula 1.00 06/10/17 02:00 107 06/10/17 01:00 103 06/10/17 00:00 106 06/09/17 23:00 98 06/09/17 23:00 98.0 98 145/69 (94) 93 06/09/17 23:00 93 Nasal Cannula 1.00 06/09/17 22:00 88 06/09/17 21:00 118 06/09/17 20:17 98 Nasal Cannula 3.00 06/09/17 20:00 118 06/09/17 19:00 97.7 115 168/83 (111) 98 06/09/17 19:00 98 Nasal Cannula 2.00 06/09/17 19:00 115 06/09/17 18:32 114 06/09/17 17:09 111 06/09/17 16:08 106 06/09/17 15:14 96 Nasal Cannula 3.00 06/09/17 15:14 97.8 113 18 155/72 (99) 96 06/09/17 15:14 110 06/09/17 14:33 115 06/09/17 13:03 101 06/09/17 12:15 98 06/09/17 12:03 104 06/09/17 11:30 100 06/09/17 11:30 96 Nasal Cannula 3.00 06/09/17 11:05 97.7 95 18 153/80 (104) 96 06/09/17 11:00 104 06/09/17 10:12 120 06/09/17 10:00 94 06/09/17 09:34 90 06/09/17 09:00 88 06/09/17 08:30 97.9 125 18 152/70 (97) 98 06/09/17 08:30 97 06/09/17 08:30 98 Nasal Cannula 3.00 06/09/17 08:27 122 I/O 06/09/17 06/09/17 06/09/17 06/10/17 06/10/17 06/10/17 07:00 15:00 23:00 07:00 15:00 23:00 Intake Total 540 ml 830 ml 600 ml Output Total 400 ml 450 ml 810 ml Balance 140 ml 380 ml -210 ml Intake Oral 440 ml 480 ml 600 ml IV Total 100 ml 350 ml Output Urine Total 350 ml 400 ml 800 ml Chest Tube Drainage Total 50 ml 50 ml 10 ml # Voids 2 2 # Bowel Movements 2 Result Diagram: 06/08/17 0350 06/08/17 0350 Imaging Last Impressions Chest X-Ray 06/08/17 0000 Signed Impressions: Service Date/Time: Thursday, June 08, 2017 03:52 - CONCLUSION: Persistent moderate size right pleural effusion. No evidence of pneumothorax. Patchy infiltrates at the left lung base. Buck Contreras MD Chest Tube Insertion 06/07/17 0000 Signed Impressions: Service Date/Time: Wednesday, June 07, 2017 16:40 - CONCLUSION: Uncomplicated CT-guided thoracostomy tube placement for right pleural effusion. Nikita Stuart MD Thoracentesis Ultrasound 06/06/17 0000 Signed Impressions: Service Date/Time: Tuesday, June 06, 2017 13:52 - CONCLUSION: 1. Attempted ultrasound-guided thoracentesis. No fluid could be obtained due to the extensive loculated nature of the patient's effusion. 2. Post procedure the patient coughed up a small amount of blood. The patient was back to baseline at approximately 5-10 minutes. The patient was transferred back to her room in stable condition. 3. Chest x-ray in 2 hours will be ordered. Domingo Mckeon MD Chest CT 06/05/17 0000 Signed Impressions: Service Date/Time: Monday, June 05, 2017 00:46 - CONCLUSION: 1. Right basilar consolidation with associated partially loculated right-sided effusion. 2. Trace pericardial effusion. 3. Severe degenerative changes in the left shoulder. 4. 5 cm cyst in the anterior midpole of the left kidney. Сергей Van MD Carotid Artery Ultrasound 06/05/17 0000 Signed Impressions: Service Date/Time: Monday, June 05, 2017 12:51 - CONCLUSION: Moderate atherosclerosis identified within the region of the carotid bulbs. No significant stenosis is visualized.. Ryanne Barton MD Head CT 06/04/17 0000 Signed Impressions: Service Date/Time: Sunday, June 04, 2017 21:56 - CONCLUSION: 1. No bleed or evidence of an acute ischemic event. 2. Ventriculomegaly unchanged. 3. Chronic white matter changes are again seen. Nikita Aguilar MD Objective Remarks GENERAL: Alert, oriented 3, NAD. SKIN: Warm and dry. HEAD: Normocephalic. EYES: No scleral icterus. No injection or drainage. NECK: Supple, trachea midline. No JVD or lymphadenopathy. CARDIOVASCULAR: Regular rate and rhythm without murmurs, gallops, or rubs. RESPIRATORY: Moderate air entry, no appreciable wheezing. No accessory muscle use. GASTROINTESTINAL: Abdomen soft, non-tender, nondistended. MUSCULOSKELETAL: No cyanosis, or edema. BACK: Nontender without obvious deformity. No CVA tenderness. Procedures Echocardiogram 06/06/2017 Normal left ventricular size. Mild concentric left ventricular hypertrophy. The left ventricular systolic function is normal with an estimated ejection fraction in the range of 60-65%. The left atrial size is mildly dilated. The right atrial size is mildly dilated. Hevi-us-honwlerv mitral valve regurgitation. Mild mitral annular calcification. Aortic valve sclerosis is present. There is mild to moderate tricuspid valve regurgitation. Severe pulmonary hypertension. The estimated pulmonary arterial pressure is 75 mmHg. A/P Assessment and Plan Ms. Palacio is a pleasant 86-year-old female with a history of hypertension, arthritis who was recently diagnosed in the ED with pneumonia and pleural effusion and was sent home on antibiotics. 2 days later patient fell at home and had a laceration on her head. CT scan of the chest showed right basilar consolidation with partially loculated right pleural effusion. Patient met sepsis criteria and started on IV antibiotics. A right-sided chest tube was also placed for draining pleural effusion. Sepsis Patient met criteria with leukocytosis, tachycardia, pneumonia Patient continued on cefepime, Zithromax. Currently on Levaquin 750 mg daily. Influenza testing was negative Blood cultures negative so far Legionella/streptococcal antigen negative Sputum culture rare growth of normal respiratory bertrand Urine culture showed immature growth Acute hypoxic respiratory failure Severe pulmonary arterial hypertension Likely secondary to pleural effusion, possible empyema, pneumonia Continue to some rotation maintain O2 sats greater than 90% Continue duo nebs every 6 hours while awake and every 2 hours Prednisone 10 mg twice daily. Right basilar pneumonia Right sided pleural effusion, loculated Continue antibiotics as above Chest tube in place on the right side. Supplemental O2 requirement is improving currently on 2 L. Continue Mucinex Increased in WBC maybe partially related to steroid. Continue Levaquin 750 mg daily. Chest tube in place. Pulmonology requested ultrasound-guided thoracentesis or possible use of TPA. Syncopal episode unknown etiology could be secondary to vasovagal, sepsis, hypoxia CT the brain did not indicate any acute abnormality Carotid ultrasound shows moderate atherosclerosis with no significant stenosis visualized Echocardiogram indicated ejection fraction 60-65% with dilated ventricles. Severe pulmonary hypertension with PA peak pressure 75 nnhg Monitor telemetry DNR. SCDs. Kin Sagastume DO Jun 10, 2017 7:59 am
[2017-06-10] MEDS: amLODIPine BESYLATE 5 MG TAB PO SCH (08:43)
[2017-06-10] MEDS: guaiFENesin E.R. 600 MG TAB PO SCH ×2 (08:43→21:04)
[2017-06-10] MEDS: LEVOFLOXACIN 750 MG TAB PO SCH (08:43)
[2017-06-10] MEDS: predniSONE 10 MG TAB PO SCH ×2 (08:43→21:04)
[2017-06-10] MEDS: CYANOCOBALAMIN 1,000 MCG TAB PO SCH (08:43)
[2017-06-10] MEDS: MULTIVITAMIN TAB PO SCH (08:43)
[2017-06-10] MEDS: METOPROLOL TARTRATE 50 MG TAB PO SCH ×2 (08:43→21:04)
[2017-06-10] MEDS: VALSARTAN 80 MG TAB PO SCH ×3 (08:45→18:08)
[2017-06-10] MEDS: SODIUM CHLORIDE 0.9% FLUSH 10 ML FLUSH IV FLUSH SCH ×2 (08:48→21:05)
[2017-06-10] MEDS: DOCUSATE SODIUM 50 MG/SENNA 8.6 MG TAB PO SCH ×2 (08:48→21:00)
[2017-06-10] MEDS: FAMOTIDINE 20 MG TAB PO SCH ×2 (08:48→21:05)
[2017-06-10] MEDS ORDERED: TORSEMIDE 5 MG TAB PO ONE (12:00)
--- NOTE | 2017-06-10 16:52 | RADRPT ---
EXAM DATE/TIME: 06/10/2017 16:13 [facility] COMPARISON: CT THORAX W/O CONTRAST, June 05, 2017, 0:46. INDICATIONS : Evaluate pleural effusion. RADIATION DOSE: 7.70 CTDIvol (mGy) MEDICAL HISTORY : Cardiovascular disease. Hypertension. SURGICAL HISTORY : None. ENCOUNTER: Initial ACUITY: 1 day PAIN SCALE: 4/10 LOCATION: chest TECHNIQUE: Volumetric scanning of the chest was performed. Using automated exposure control and adjustment of t he mA and/or kV according to patient size, radiation dose was kept as low as reasonably achievable to obtain optimal diagnostic quality images. DICOM format image data is available electronically for r eview and comparison. Follow-up recommendations for detected pulmonary nodules are based at a minimum on nodule size and pa tient risk factors according to Fleischner Society Guidelines. FINDINGS: A. small right-sided chest tube is noted within the right lung base posteriorly in good position. The re has been significant interval decrease in the volume of the right pleural effusion compared to the previous examination. A small to moderate sized partially loculated right pleural effusion remains. A small left pleural effusion is also noted. The left pleural effusion has developed since the previo us examination. Right basilar consolidation is again noted. Coronary artery calcifications are stable . No pulmonary nodule or mass is noted. No mediastinal, hilar or axillary lymphadenopathy is noted. D egenerative changes and scoliosis of the thoracolumbar spine are noted. Left renal cyst is stable. Th ere is a 6 mm low-density lesion within the left lobe of the liver which is stable compared to the pr evious examination but remains indeterminate. Severe degenerative changes are noted in the left shoul alex. CONCLUSION: 1. Interval decrease in volume of the right pleural effusion secondary to placement of small chest tu be with small to moderate sized partially loculated effusion still noted. 2. Interval development of small left pleural effusion. 3. Right basilar consolidation is stable. 4. Coronary artery calcifications. 5. Degenerative changes and scoliosis of the thoracolumbar spine. 6. Stable left renal cyst. 7. Stable 6 mm low density indeterminate left lobe hepatic nodule. 8. Severe degenerative changes involving left shoulder. Noel Schmid MD on June 10, 2017 at 16:44 Board Certified Radiologist. This report was verified electronically.
--- NOTE | 2017-06-10 17:52 | HHI.PR ---
Subjective Remarks 86 YOWF with Loculated pl eff, s/p right chest tube, Pneumonia Breathing better 02 decreased 3 LNC No fever Feels much better Pl fluid exudate Chest tube not draining CT Chest decreased rt pl eff Objective Vital Signs Vital Signs Date Time Temp Pulse Resp B/P (MAP) Pulse Ox O2 Delivery O2 Flow Rate FiO2 06/10/17 17:01 115 06/10/17 16:34 97 06/10/17 16:30 98.3 91 20 148/70 (96) 95 06/10/17 16:30 95 Room Air 06/10/17 15:54 117 06/10/17 14:19 106 06/10/17 13:25 106 06/10/17 13:10 98.5 99 18 129/73 (91) 96 06/10/17 13:10 96 Room Air 06/10/17 12:00 92 06/10/17 11:12 104 06/10/17 10:00 102 06/10/17 09:12 120 06/10/17 08:38 127 06/10/17 07:51 92 Nasal Cannula 2.00 06/10/17 07:38 98.5 107 18 174/77 (109) 97 06/10/17 07:38 97 Nasal Cannula 1.00 06/10/17 07:20 103 06/10/17 06:00 100 06/10/17 05:00 95 06/10/17 04:00 93 06/10/17 03:06 117 06/10/17 03:00 Nasal Cannula 1.00 06/10/17 02:00 107 06/10/17 01:00 103 06/10/17 00:00 106 06/09/17 23:00 98 06/09/17 23:00 98.0 98 145/69 (94) 93 06/09/17 23:00 93 Nasal Cannula 1.00 06/09/17 22:00 88 06/09/17 21:00 118 06/09/17 20:17 98 Nasal Cannula 3.00 06/09/17 20:00 118 06/09/17 19:00 97.7 115 168/83 (111) 98 06/09/17 19:00 98 Nasal Cannula 2.00 06/09/17 19:00 115 06/09/17 18:32 114 I/O 3/21/18 06/09/17 06/09/17 06/10/17 06/10/17 06/10/17 07:00 15:00 23:00 07:00 15:00 23:00 Intake Total 540 ml 830 ml 600 ml 940 ml Output Total 400 ml 450 ml 810 ml 1850 ml Balance 140 ml 380 ml -210 ml -910 ml Intake Oral 440 ml 480 ml 600 ml 940 ml IV Total 100 ml 350 ml Output Urine Total 350 ml 400 ml 800 ml 1850 ml Chest Tube Drainage Total 50 ml 50 ml 10 ml # Voids 2 2 # Bowel Movements 2 Result Diagram: 06/08/1734906/08/17349 Objective Remarks GENERAL: Frail elderly female, NAD SKIN: Warm and dry. HEAD: Normocephalic. EYES: No scleral icterus. No injection or drainage. NECK: Supple, trachea midline. No JVD or lymphadenopathy. CARDIOVASCULAR: Regular rate and rhythm without murmurs, gallops, or rubs. RESPIRATORY: Breath sounds equal bilaterally. No accessory muscle use. Decreased BS right Rt chest tube draining GASTROINTESTINAL: Abdomen soft, non-tender, nondistended. MUSCULOSKELETAL: No cyanosis, or edema. BACK: Nontender without obvious deformity. No CVA tenderness. A/P Assessment and Plan IMPRESSION: 1. Pneumonia. 2. Right loculated pleural effusion, status post chest tube placement. 3. Leukocytosis. 4. Hypertension. 5. Arthritis. PLAN: Cont Abx Chest tube to suction Check cultures Encourage to use Acapella and IS IR evaluating for new or repositioning chest tube vs TPA Donnie Villavicencio MD Jun 10, 2017 17:52
[2017-06-10] MEDS: TORSEMIDE 5 MG TAB PO SCH (18:08)
[2017-06-10] MEDS: ACETAMINOPHEN/CODEINE 300 MG/30 MG TAB PO PRN (22:18)
[2017-06-11] VITALS (27 sets, daily range): BP systolic 132–169; BP diastolic 69–88; PULSE 78–116; RESP 18–20; TEMP 97.9–98.7; O2SAT 92–97
[2017-06-11] MEDS: SODIUM CHLORIDE 0.9% FLUSH 10 ML FLUSH IV FLUSH SCH ×2 (09:00→21:40)
[2017-06-11] MEDS: VALSARTAN 80 MG TAB PO SCH ×3 (09:00→17:25)
[2017-06-11] MEDS: CYANOCOBALAMIN 1,000 MCG TAB PO SCH (11:12)
[2017-06-11] MEDS: FAMOTIDINE 20 MG TAB PO SCH ×2 (11:12→21:39)
[2017-06-11] MEDS: MULTIVITAMIN TAB PO SCH (11:12)
[2017-06-11] MEDS: LEVOFLOXACIN 750 MG TAB PO SCH (11:12)
[2017-06-11] MEDS: METOPROLOL TARTRATE 50 MG TAB PO SCH ×2 (11:12→21:39)
[2017-06-11] MEDS: amLODIPine BESYLATE 5 MG TAB PO SCH (11:12)
[2017-06-11] MEDS: predniSONE 10 MG TAB PO SCH ×2 (11:13→21:39)
[2017-06-11] MEDS: TORSEMIDE 5 MG TAB PO SCH ×2 (11:13→17:22)
[2017-06-11] MEDS: guaiFENesin E.R. 600 MG TAB PO SCH ×2 (11:13→21:39)
[2017-06-11] MEDS: DOCUSATE SODIUM 50 MG/SENNA 8.6 MG TAB PO SCH ×2 (11:13→21:00)
--- NOTE | 2017-06-11 14:36 | HHI.PR ---
Subjective Remarks Follow-up for sepsis, pneumonia, pleural effusion. Patient is currently resting in bed, on room air. Denies any chest pain, shortness of breath, fever or chills. Discussed with son as well. Per nursing staff, chest tube may be discontinued later today or tomorrow and possibly cleared for discharge by pulmonary tomorrow. Objective Vitals Vital Signs Date Time Temp Pulse Resp B/P (MAP) Pulse Ox O2 Delivery O2 Flow Rate FiO2 06/11/17 13:24 94 21 06/11/17 13:00 102 06/11/17 12:00 113 06/11/17 11:00 110 06/11/17 11:00 98.7 114 20 163/73 (103) 94 06/11/17 11:00 94 Room Air 06/11/17 10:00 78 06/11/17 09:00 92 06/11/17 08:00 90 06/11/17 07:40 98.2 108 18 162/84 (110) 93 06/11/17 07:00 84 06/11/17 07:00 96 Room Air 06/11/17 06:00 107 06/11/17 05:00 98 06/11/17 04:00 93 06/11/17 03:00 98.2 109 18 162/77 (105) 92 06/11/17 03:00 97 Room Air 06/11/17 03:00 100 06/11/17 02:00 94 06/11/17 01:00 90 06/11/17 00:00 88 06/10/17 23:00 98.5 81 18 157/75 (102) 97 06/10/17 23:00 83 06/10/17 23:00 97 Room Air 06/10/17 22:00 80 06/10/17 21:00 112 06/10/17 20:09 95 06/10/17 19:00 124 06/10/17 19:00 94 Room Air 06/10/17 19:00 98.2 114 20 116/67 (83) 94 06/10/17 18:21 120 06/10/17 17:01 115 06/10/17 16:34 97 06/10/17 16:30 98.3 91 20 148/70 (96) 95 06/10/17 16:30 95 Room Air 06/10/17 15:54 117 I/O 06/10/17 06/10/17 06/10/17 06/11/17 06/11/17 06/11/17 07:00 15:00 23:00 07:00 15:00 23:00 Intake Total 600 ml 940 ml 300 ml Output Total 810 ml 1870 ml 1800 ml Balance -210 ml -930 ml -1500 ml Intake Oral 600 ml 940 ml 300 ml Output Urine Total 800 ml 1850 ml 1800 ml Chest Tube Drainage Total 10 ml 20 ml # Bowel Movements 0 Result Diagram: 06/08/17 0350 06/08/17 0350 Imaging Last Impressions Chest CT 06/10/17 0000 Signed Impressions: Service Date/Time: May 16:13 - CONCLUSION: 1. Interval decrease in volume of the right pleural effusion secondary to placement of small chest tube with small to moderate sized partially loculated effusion still noted. 2. Interval development of small left pleural effusion. 3. Right basilar consolidation is stable. 4. Coronary artery calcifications. 5. Degenerative changes and scoliosis of the thoracolumbar spine. 6. Stable left renal cyst. 7. Stable 6 mm low density indeterminate left lobe hepatic nodule. 8. Severe degenerative changes involving left shoulder. Noel Schmid MD Chest X-Ray 06/08/17 0000 Signed Impressions: Service Date/Time: Thursday, June 08, 2017 03:52 - CONCLUSION: Persistent moderate size right pleural effusion. No evidence of pneumothorax. Patchy infiltrates at the left lung base. Buck Contreras MD Chest Tube Insertion 06/07/17 0000 Signed Impressions: Service Date/Time: Wednesday, June 07, 2017 16:40 - CONCLUSION: Uncomplicated CT-guided thoracostomy tube placement for right pleural effusion. Nikita Stuart MD Thoracentesis Ultrasound 06/06/17 0000 Signed Impressions: Service Date/Time: Tuesday, June 06, 2017 13:52 - CONCLUSION: 1. Attempted ultrasound-guided thoracentesis. No fluid could be obtained due to the extensive loculated nature of the patient's effusion. 2. Post procedure the patient coughed up a small amount of blood. The patient was back to baseline at approximately 5-10 minutes. The patient was transferred back to her room in stable condition. 3. Chest x-ray in 2 hours will be ordered. Domingo Mckeon MD Carotid Artery Ultrasound 06/05/17 0000 Signed Impressions: Service Date/Time: Monday, June 05, 2017 12:51 - CONCLUSION: Moderate atherosclerosis identified within the region of the carotid bulbs. No significant stenosis is visualized.. Ryanne Barton MD Head CT 06/04/17 0000 Signed Impressions: Service Date/Time: Sunday, June 04, 2017 21:56 - CONCLUSION: 1. No bleed or evidence of an acute ischemic event. 2. Ventriculomegaly unchanged. 3. Chronic white matter changes are again seen. Nikita Aguilar MD Objective Remarks GENERAL: Alert, oriented 3, NAD. SKIN: Warm and dry. HEAD: Normocephalic. EYES: No scleral icterus. No injection or drainage. NECK: Supple, trachea midline. No JVD or lymphadenopathy. CARDIOVASCULAR: Regular rate and rhythm without murmurs, gallops, or rubs. RESPIRATORY: Moderate air entry, no appreciable wheezing. No accessory muscle use. GASTROINTESTINAL: Abdomen soft, non-tender, nondistended. MUSCULOSKELETAL: No cyanosis, or edema. BACK: Nontender without obvious deformity. No CVA tenderness. Procedures Echocardiogram 06/06/2017 Normal left ventricular size. Mild concentric left ventricular hypertrophy. The left ventricular systolic function is normal with an estimated ejection fraction in the range of 60-65%. The left atrial size is mildly dilated. The right atrial size is mildly dilated. [id number] mitral valve regurgitation. Mild mitral annular calcification. Aortic valve sclerosis is present. There is mild to moderate tricuspid valve regurgitation. Severe pulmonary hypertension. The estimated pulmonary arterial pressure is 75 mmHg. A/P Assessment and Plan Ms. Palacio is a pleasant 86-year-old female with a history of hypertension, arthritis who was recently diagnosed in the ED with pneumonia and pleural effusion and was sent home on antibiotics. 2 days later patient fell at home and had a laceration on her head. CT scan of the chest showed right basilar consolidation with partially loculated right pleural effusion. Patient met sepsis criteria and started on IV antibiotics. A right-sided chest tube was also placed for draining pleural effusion. Sepsis Patient met criteria with leukocytosis, tachycardia, pneumonia Patient continued on cefepime, Zithromax. Currently on Levaquin 750 mg daily. Influenza testing was negative Blood cultures negative so far Legionella/streptococcal antigen negative Sputum culture rare growth of normal respiratory bertrand Urine culture showed immature growth Acute hypoxic respiratory failure Severe pulmonary arterial hypertension Likely secondary to pleural effusion, possible empyema, pneumonia Continue to some rotation maintain O2 sats greater than 90% Continue duo nebs every 6 hours while awake and every 2 hours Prednisone 10 mg twice daily. Right basilar pneumonia Right sided pleural effusion, loculated Continue antibiotics as above Chest tube in place on the right side. Supplemental O2 requirement is improving currently on 2 L. Continue Mucinex Increased in WBC maybe partially related to steroid. Continue Levaquin 750 mg daily. Chest tube in place. Patient underwent Chest CT yesterday which showed reduced pleural effusion. Syncopal episode unknown etiology could be secondary to vasovagal, sepsis, hypoxia CT the brain did not indicate any acute abnormality Carotid ultrasound shows moderate atherosclerosis with no significant stenosis visualized Echocardiogram indicated ejection fraction 60-65% with dilated ventricles. Severe pulmonary hypertension with PA peak pressure 75 mmHg. Monitor telemetry DNR. SCDs. Discharge plan: If chest tube is discontinued, possible discharge tomorrow 2017. Kin Sagastume DO Jun 11, 2017 2:36 pm
[2017-06-11] MEDS ORDERED: LIDOCAINE HCL 1% 20 ML VIAL ONE (16:04)
--- NOTE | 2017-06-11 16:18 | RADRPT ---
EXAM DATE/TIME: 06/11/2017 16:00 [facility] COMPARISON: CHEST EXPIRATION ONLY, June 08, 2017, 3:52. INDICATIONS : Post right thoracentesis MEDICAL HISTORY : Cardiovascular disease. Hypertension. SURGICAL HISTORY : None. ENCOUNTER: Initial ACUITY: 1 day PAIN SCORE: 0/10 LOCATION: Right chest FINDINGS: Interval removal of right inferior chest tube. No significant pneumothorax. Redemonstration of locula fili small anterior inferior left pleural effusion. Minimal airspace disease at the left lung base. Ca rdiomediastinal contours are stable. Remainder of the exam is unchanged. CONCLUSION: 1. No significant pneumothorax following chest tube removal and left-sided thoracentesis. 2. Small residual inferior anterior loculated pleural effusion. 3. Mild left lung base airspace disease, likely atelectasis. Rickey Schmitz MD on June 11, 2017 at 16:14 Board Certified Radiologist. This report was verified electronically.
--- NOTE | 2017-06-11 16:19 | RADRPT ---
EXAM DATE/TIME: 06/11/2017 15:20 [facility] COMPARISON: US GUIDED THORACENTESIS RIGHT, June 06, 2017, 13:52. INDICATIONS : Right pleural effusion. MEDICAL HISTORY : Hypertension. Glasses. Dentures. Ovarian cysts. Urinary incontinence. Arthritis. Intraventricular hem morage. SURGICAL HISTORY : Appendectomy. Wisdome teeth removed. Bilateral hip replacement. Bilateral elbow surgery. Right should er surgery. Left knee replacement. ENCOUNTER: Subsequent ACUITY: 1 week PAIN SCORE: 2/10 LOCATION: Right chest FLUID: Total volume of 20 cc of clear, yellow fluid was removed. Fluid was discarded. Thoracentesis was therapeutic only. TECHNIQUE: 1. Ultrasound guidance for thoracentesis. 2. Thoracentesis. The risks, benefits, and alternatives to ultrasound guided thoracentesis were explained to the patien t in lay simple terms, including the risk of bleeding and infection. Written and verbal informed con sent was obtained. Appropriate area for thoracentesis was marked under ultrasound guidance with the patient in the uprig ht position. Overlying skin was prepped and draped in the usual sterile fashion and with local anest hetic, a dermatotomy was made with an 11 blade scalpel. A 6 [place] thoracentesis catheter was placed in the pleural space and fluid was removed. Catheter was then removed and a sterile dressing applie d. There were no immediate complications. The patient tolerated the procedure well and the left the ultrasound suite in stable condition. Chest radiograph is to be obtained. CONCLUSION: 1. Uncomplicated ultrasound-guided thoracentesis of loculated anterior right pleural effusion. Only a small amount of fluid could be removed. Rickey Schmitz MD on June 11, 2017 at 16:16 Board Certified Radiologist. This report was verified electronically.
--- NOTE | 2017-06-11 18:31 | HHI.PR ---
Subjective Remarks 86 YOWF with Loculated pl eff, s/p right chest tube, Pneumonia Breathing better No fever Feels much better Pl fluid exudate Chest tube removed Had TC done, only 20 cc fluid removed Weaned to RA Objective Vital Signs Vital Signs Date Time Temp Pulse Resp B/P (MAP) Pulse Ox O2 Delivery O2 Flow Rate FiO2 06/11/17 18:00 116 06/11/17 17:00 104 06/11/17 16:00 102 06/11/17 15:00 92 06/11/17 15:00 98.4 91 20 132/69 (90) 97 06/11/17 15:00 97 Room Air 06/11/17 14:00 97 06/11/17 13:24 94 21 06/11/17 13:00 102 06/11/17 12:00 113 06/11/17 11:00 110 06/11/17 11:00 98.7 114 20 163/73 (103) 94 06/11/17 11:00 94 Room Air 06/11/17 10:00 78 06/11/17 09:00 92 06/11/17 08:00 90 06/11/17 07:40 98.2 108 18 162/84 (110) 93 06/11/17 07:00 84 06/11/17 07:00 96 Room Air 06/11/17 06:00 107 06/11/17 05:00 98 06/11/17 04:00 93 06/11/17 03:00 98.2 109 18 162/77 (105) 92 06/11/17 03:00 97 Room Air 06/11/17 03:00 100 06/11/17 02:00 94 06/11/17 01:00 90 06/11/17 00:00 88 06/10/17 23:00 98.5 81 18 157/75 (102) 97 06/10/17 23:00 83 06/10/17 23:00 97 Room Air 06/10/17 22:00 80 06/10/17 21:00 112 06/10/17 20:09 95 06/10/17 19:00 124 06/10/17 19:00 94 Room Air 06/10/17 19:00 98.2 114 20 116/67 (83) 94 I/O 06/10/17 06/10/17 06/10/17 06/11/1723/18 3/23/18 07:00 15:00 23:00 07:00 15:00 23:00 Intake Total 600 ml 940 ml 300 ml 720 ml Output Total 810 ml 1870 ml 1800 ml 800 ml Balance -210 ml -930 ml -1500 ml -80 ml Intake Oral 600 ml 940 ml 300 ml 720 ml Output Urine Total 800 ml 1850 ml 1800 ml 800 ml Chest Tube Drainage Total 10 ml 20 ml # Bowel Movements 0 0 Result Diagram: 06/08/1734906/08/17 0350 Objective Remarks GENERAL: Frail elderly female, NAD SKIN: Warm and dry. HEAD: Normocephalic. EYES: No scleral icterus. No injection or drainage. NECK: Supple, trachea midline. No JVD or lymphadenopathy. CARDIOVASCULAR: Regular rate and rhythm without murmurs, gallops, or rubs. RESPIRATORY: Breath sounds equal bilaterally. No accessory muscle use. GASTROINTESTINAL: Abdomen soft, non-tender, nondistended. MUSCULOSKELETAL: No cyanosis, or edema. BACK: Nontender without obvious deformity. No CVA tenderness. A/P Assessment and Plan IMPRESSION: 1. Pneumonia. 2. Right loculated pleural effusion, status post chest tube placement. 3. Leukocytosis. 4. Hypertension. 5. Arthritis. PLAN: Cont Abx Encourage to use Acapella and IS stable on RA DC plans underway. Donnie Villavicencio MD Jun 11, 2017 18:31
[2017-06-12] VITALS (27 sets, daily range): BP systolic 109–146; BP diastolic 60–78; PULSE 79–126; RESP 16–20; TEMP 97.6–98.6; O2SAT 92–97
[2017-06-12 06:17] LABS: AUTOMATED NEUTROPHIL # 19.6 TH/MM3 (1.8-7.7); BASOPHIL # 0.1 TH/MM3 (0-0.2); BASOPHIL % 0.2 % (0.0-2.0); EOSINOPHIL # 0.1 TH/MM3 (0-0.4); EOSINOPHIL % 0.3 % (0.0-4.0); HEMATOCRIT 37.8 % (35.0-46.0); HEMOGLOBIN 12.8 GM/DL (11.6-15.3); LYMPH % 6.1 % (9.0-44.0); LYMPHOCYTE # 1.4 TH/MM3 (1.0-4.8); MEAN CELL VOLUME 87.4 FL (80.0-100.0); MEAN CORPUSCULAR HEMOGLOBIN 29.6 PG (27.0-34.0); MEAN CORPUSCULAR HGB CONC 33.9 % (32.0-36.0); MEAN PLATELET VOLUME 7.1 FL (7.0-11.0); MONO % 7.8 % (0.0-8.0); MONOCYTE # 1.8 TH/MM3 (0-0.9); NEUT % 85.6 % (16.0-70.0); PLATELET COUNT 521 TH/MM3 (150-450); RED BLOOD COUNT 4.33 MIL/MM3 (4.00-5.30); RED CELL DISTRIBUTION WIDTH 14.3 % (11.6-17.2); WHITE BLOOD COUNT 22.9 TH/MM3 (4.0-11.0)
[2017-06-12 06:42] LABS: BICARBONATE 33.2 MEQ/L (21.0-32.0); CALCIUM 8.1 MG/DL (8.5-10.1); CREATININE 0.59 MG/DL (0.50-1.00)
[2017-06-12] MEDS: POTASSIUM CHLOR 20 MEQ PREMIX 100 ML IV SCH ×3 (07:00→08:54)
[2017-06-12] MEDS ORDERED: POTASSIUM CHLORIDE 20 MEQ CONTROLLED RELEASE TAB PO ONE (07:15)
[2017-06-12] MEDS: FAMOTIDINE 20 MG TAB PO SCH ×2 (08:35→21:33)
[2017-06-12] MEDS: TORSEMIDE 5 MG TAB PO SCH ×2 (08:35→17:16)
[2017-06-12] MEDS: DOCUSATE SODIUM 50 MG/SENNA 8.6 MG TAB PO SCH ×2 (08:35→21:00)
[2017-06-12] MEDS: CYANOCOBALAMIN 1,000 MCG TAB PO SCH (08:35)
[2017-06-12] MEDS: predniSONE 10 MG TAB PO SCH ×2 (08:36→21:34)
[2017-06-12] MEDS: MULTIVITAMIN TAB PO SCH (08:36)
[2017-06-12] MEDS: amLODIPine BESYLATE 5 MG TAB PO SCH (08:36)
[2017-06-12] MEDS: METOPROLOL TARTRATE 50 MG TAB PO SCH ×2 (08:36→21:33)
[2017-06-12] MEDS: VALSARTAN 80 MG TAB PO SCH ×3 (08:36→17:15)
[2017-06-12] MEDS: SODIUM CHLORIDE 0.9% FLUSH 10 ML FLUSH IV FLUSH SCH ×2 (08:36→21:00)
[2017-06-12] MEDS: LEVOFLOXACIN 750 MG TAB PO SCH (08:36)
[2017-06-12] MEDS: guaiFENesin E.R. 600 MG TAB PO SCH ×2 (08:36→21:33)
[2017-06-12] MEDS ORDERED: ACET1TAB94 PO (08:37)
[2017-06-12] MEDS ORDERED: TORS5TAB2 PO (08:37)
[2017-06-12] MEDS ORDERED: POTA1TAB4 PO (09:41)
[2017-06-12] MEDS ORDERED: K-TA10TA PO (09:41)
[2017-06-12 09:42] LABS: BANDS 4 % (0-6); LYMPHOCYTES 9 % (9-44); METAMYELOCYTES 1 % (0-1); MONOCYTES 6 % (0-8); MYELOCYTES 1 % (0-0); NEUTROPHIL # MANUAL DIFF 19.5 TH/MM3 (1.8-7.7); POLYS (SEG NEUTROPHILS) 79 % (16-70)
[2017-06-12] MEDS ORDERED: PRED10 PO (09:42)
[2017-06-12] MEDS: POTASSIUM CHLORIDE 10 MEQ CONTROLLED RELEASE TAB PO SCH ×2 (13:17→21:33)
--- NOTE | 2017-06-12 15:13 | HHI.PR ---
Subjective Remarks 86 YOWF with Loculated pl eff, s/p right chest tube, Pneumonia Breathing better No fever Feels much better Weaned to RA Objective Vital Signs Vital Signs Date Time Temp Pulse Resp B/P (MAP) Pulse Ox O2 Delivery O2 Flow Rate FiO2 06/12/17 14:00 112 06/12/17 13:00 85 06/12/17 12:00 98 06/12/17 11:00 95 Room Air 06/12/17 11:00 87 06/12/17 11:00 97.6 97 20 109/64 (79) 95 06/12/17 10:00 92 06/12/17 09:00 114 06/12/17 08:00 116 06/12/17 07:30 97 Room Air 06/12/17 07:30 117 06/12/17 07:30 98.6 118 20 146/60 (88) 97 06/12/17 06:47 98.5 111 18 146/78 (100) 96 06/12/17 06:30 102 06/12/17 06:00 99 06/12/17 04:00 107 06/12/17 03:00 93 Room Air 06/12/17 03:00 97 06/12/17 02:00 90 06/12/17 01:00 90 06/12/17 00:00 104 06/11/17 23:00 96 Room Air 06/11/17 23:00 89 06/11/17 23:00 97.9 95 20 169/88 (115) 96 06/11/17 22:00 102 06/11/17 21:51 104 06/11/17 21:23 96 21 06/11/17 20:00 103 06/11/17 19:00 106 06/11/17 19:00 98.0 109 20 150/70 (96) 93 06/11/17 19:00 93 Room Air 06/11/17 18:00 116 06/11/17 17:00 104 06/11/17 16:00 102 I/O 06/11/17 06/11/17 06/11/17 06/12/17 06/12/17 06/12/17 07:00 15:00 23:00 07:00 15:00 23:00 Intake Total 300 ml 720 ml 300 ml Output Total 1810 ml 800 ml 1300 ml Balance -1510 ml -80 ml -1000 ml Intake Oral 300 ml 720 ml 300 ml Output Urine Total 1800 ml 800 ml 1300 ml Chest Tube Drainage Total 10 ml # Bowel Movements 0 0 1 Result Diagram: 06/12/1752906/12/17529 Objective Remarks GENERAL: Frail elderly female, NAD SKIN: Warm and dry. HEAD: Normocephalic. EYES: No scleral icterus. No injection or drainage. NECK: Supple, trachea midline. No JVD or lymphadenopathy. CARDIOVASCULAR: Regular rate and rhythm without murmurs, gallops, or rubs. RESPIRATORY: Breath sounds equal bilaterally. No accessory muscle use. GASTROINTESTINAL: Abdomen soft, non-tender, nondistended. MUSCULOSKELETAL: No cyanosis, or edema. BACK: Nontender without obvious deformity. No CVA tenderness. A/P Assessment and Plan IMPRESSION: 1. Pneumonia. 2. Right loculated pleural effusion, status post chest tube placement. 3. Leukocytosis. 4. Hypertension. 5. Arthritis. PLAN: Cont Abx Encourage to use Acapella and IS stable on RA DC plans underway. Will FU in office Donnie Villavicencio MD Jun 12, 2017 15:12
[2017-06-12] MEDS: ACETAMINOPHEN/CODEINE 300 MG/30 MG TAB PO PRN (21:34)
[2017-06-13] VITALS (17 sets, daily range): BP systolic 135–162; BP diastolic 64–73; PULSE 78–110; RESP 16–20; TEMP 97.4–98.2; O2SAT 93–97
[2017-06-13] MEDS: POTASSIUM CHLORIDE 10 MEQ CONTROLLED RELEASE TAB PO SCH ×2 (05:45→13:05)
[2017-06-13] MEDS: SODIUM CHLORIDE 0.9% FLUSH 10 ML FLUSH IV FLUSH SCH (09:00)
[2017-06-13] MEDS: DOCUSATE SODIUM 50 MG/SENNA 8.6 MG TAB PO SCH (09:00)
[2017-06-13] MEDS: VALSARTAN 80 MG TAB PO SCH ×2 (09:00→13:00)
[2017-06-13] MEDS: FAMOTIDINE 20 MG TAB PO SCH (09:00)
[2017-06-13] MEDS: CYANOCOBALAMIN 1,000 MCG TAB PO SCH (09:00)
[2017-06-13] MEDS: MULTIVITAMIN TAB PO SCH (09:00)
[2017-06-13] MEDS: predniSONE 10 MG TAB PO SCH (09:37)
[2017-06-13] MEDS: LEVOFLOXACIN 750 MG TAB PO SCH (09:37)
[2017-06-13] MEDS: TORSEMIDE 5 MG TAB PO SCH (09:37)
[2017-06-13] MEDS: amLODIPine BESYLATE 5 MG TAB PO SCH (09:37)
[2017-06-13] MEDS: METOPROLOL TARTRATE 50 MG TAB PO SCH (09:37)
[2017-06-13] MEDS: guaiFENesin E.R. 600 MG TAB PO SCH (09:37)
--- NOTE | 2017-06-13 13:20 | HHI.PR ---
Subjective Remarks Delayed entry for 06/12/2017. Follow-up for sepsis, pneumonia, pleural effusion. Patient is currently doing well. No fever, chills. On room air. Objective Vitals Vital Signs Date Time Temp Pulse Resp B/P (MAP) Pulse Ox O2 Delivery O2 Flow Rate FiO2 06/13/17 12:00 86 06/13/17 11:00 97 06/13/17 11:00 98.2 85 20 158/64 (95) 97 06/13/17 11:00 84 06/13/17 10:00 108 06/13/17 09:00 88 06/13/17 08:00 89 06/13/17 08:00 94 06/13/17 07:59 97.9 90 16 162/73 (102) 93 06/13/17 07:00 96 06/13/17 06:00 91 06/13/17 05:00 86 06/13/17 04:00 84 06/13/17 03:00 97.4 84 16 135/72 (93) 94 06/13/17 03:00 94 Room Air 06/13/17 03:00 84 06/13/17 02:00 110 06/13/17 01:00 82 06/13/17 00:00 78 06/12/17 23:00 79 06/12/17 23:00 98.2 79 16 122/70 (87) 95 06/12/17 23:00 95 Room Air 06/12/17 22:34 16 06/12/17 22:00 100 06/12/17 21:00 112 06/12/17 20:05 95 06/12/17 20:00 126 06/12/17 19:00 98.2 96 18 118/62 (80) 95 06/12/17 19:00 96 06/12/17 19:00 95 Room Air 06/12/17 18:00 111 06/12/17 17:00 94 06/12/17 16:00 96 06/12/17 15:00 93 Room Air 06/12/17 15:00 103 06/12/17 15:00 98.1 93 20 118/60 (79) 93 06/12/17 14:00 112 I/O 06/12/17 06/12/17 06/12/17 06/13/17 06/13/17 06/13/17 07:00 15:00 23:00 07:00 15:00 23:00 Intake Total 300 ml 720 ml 480 ml Output Total 1300 ml 700 ml 600 ml Balance -1000 ml 20 ml -120 ml Intake Oral 300 ml 720 ml 480 ml Output Urine Total 1300 ml 700 ml 600 ml # Voids 2 # Bowel Movements 1 2 Result Diagram: 06/12/17 0530 06/12/17 0530 Imaging Last Impressions Thoracentesis Ultrasound 06/11/17 0600 Signed Impressions: Service Date/Time: Sunday, June 11, 2017 15:20 - CONCLUSION: 1. Uncomplicated ultrasound-guided thoracentesis of loculated anterior right pleural effusion. Only a small amount of fluid could be removed. Rickey Schmitz MD Chest X-Ray 06/11/17 0000 Signed Impressions: Service Date/Time: Sunday, June 11, 2017 16:00 - CONCLUSION: 1. No significant pneumothorax following chest tube removal and left-sided thoracentesis. 2. Small residual inferior anterior loculated pleural effusion. 3. Mild left lung base airspace disease, likely atelectasis. Rickey Schmitz MD Chest CT 06/10/17 0000 Signed Impressions: Service Date/Time: May 16:13 - CONCLUSION: 1. Interval decrease in volume of the right pleural effusion secondary to placement of small chest tube with small to moderate sized partially loculated effusion still noted. 2. Interval development of small left pleural effusion. 3. Right basilar consolidation is stable. 4. Coronary artery calcifications. 5. Degenerative changes and scoliosis of the thoracolumbar spine. 6. Stable left renal cyst. 7. Stable 6 mm low density indeterminate left lobe hepatic nodule. 8. Severe degenerative changes involving left shoulder. Noel Schmid MD Chest Tube Insertion 06/07/17 0000 Signed Impressions: Service Date/Time: Wednesday, June 07, 2017 16:40 - CONCLUSION: Uncomplicated CT-guided thoracostomy tube placement for right pleural effusion. Nikita Stuart MD Carotid Artery Ultrasound 06/05/17 0000 Signed Impressions: Service Date/Time: Monday, June 05, 2017 12:51 - CONCLUSION: Moderate atherosclerosis identified within the region of the carotid bulbs. No significant stenosis is visualized.. Ryanne Barton MD Head CT 06/04/17 0000 Signed Impressions: Service Date/Time: Sunday, June 04, 2017 21:56 - CONCLUSION: 1. No bleed or evidence of an acute ischemic event. 2. Ventriculomegaly unchanged. 3. Chronic white matter changes are again seen. Nikita Aguilar MD Objective Remarks GENERAL: Alert, oriented 3, NAD. SKIN: Warm and dry. HEAD: Normocephalic. EYES: No scleral icterus. No injection or drainage. NECK: Supple, trachea midline. No JVD or lymphadenopathy. CARDIOVASCULAR: Regular rate and rhythm without murmurs, gallops, or rubs. RESPIRATORY: Moderate air entry, no appreciable wheezing. No accessory muscle use. GASTROINTESTINAL: Abdomen soft, non-tender, nondistended. MUSCULOSKELETAL: No cyanosis, or edema. BACK: Nontender without obvious deformity. No CVA tenderness. Procedures Echocardiogram 06/06/2017 Normal left ventricular size. Mild concentric left ventricular hypertrophy. The left ventricular systolic function is normal with an estimated ejection fraction in the range of 60-65%. The left atrial size is mildly dilated. The right atrial size is mildly dilated. Vscc-[id number] mitral valve regurgitation. Mild mitral annular calcification. Aortic valve sclerosis is present. There is mild to moderate tricuspid valve regurgitation. Severe pulmonary hypertension. The estimated pulmonary arterial pressure is 75 mmHg. A/P Assessment and Plan Ms. Palacio is a pleasant 86-year-old female with a history of hypertension, arthritis who was recently diagnosed in the ED with pneumonia and pleural effusion and was sent home on antibiotics. 2 days later patient fell at home and had a laceration on her head. CT scan of the chest showed right basilar consolidation with partially loculated right pleural effusion. Patient met sepsis criteria and started on IV antibiotics. A right-sided chest tube was also placed for draining pleural effusion. Sepsis Patient met criteria with leukocytosis, tachycardia, pneumonia Patient continued on cefepime, Zithromax. Currently on Levaquin 750 mg daily. Influenza testing was negative Blood cultures negative so far Legionella/streptococcal antigen negative Sputum culture rare growth of normal respiratory bertrand Urine culture showed immature growth Acute hypoxic respiratory failure Severe pulmonary arterial hypertension Likely secondary to pleural effusion, possible empyema, pneumonia Continue to some rotation maintain O2 sats greater than 90% Continue duo nebs every 6 hours while awake and every 2 hours Prednisone 10 mg twice daily. Right basilar pneumonia Right sided pleural effusion, loculated Continue antibiotics as above Chest tube in place on the right side. Supplemental O2 requirement is improving currently on 2 L. Continue Mucinex Increased in WBC maybe partially related to steroid. Continue Levaquin 750 mg daily. Chest tube in place. Patient underwent Chest CT yesterday which showed reduced pleural effusion. Syncopal episode unknown etiology could be secondary to vasovagal, sepsis, hypoxia CT the brain did not indicate any acute abnormality Carotid ultrasound shows moderate atherosclerosis with no significant stenosis visualized Echocardiogram indicated ejection fraction 60-65% with dilated ventricles. Severe pulmonary hypertension with PA peak pressure 75 mmHg. Monitor telemetry Hypokalemia Will replace with PO KCL. DNR. SCDs. Kin Sagastume DO Jun 13, 2017 1:20 pm
--- NOTE | 2017-06-13 13:22 | HHI.DS ---
Discharge Summary Admission Date Jun 06, 2017 at 10:40 am Discharge Date: Jun 13, 2017 Admitting Diagnosis UTI, pleural effusion (1) PAH (pulmonary artery hypertension) ICD Code: I27.21 - Secondary pulmonary arterial hypertension (2) Pneumonia involving right lung ICD Code: J18.9 - Pneumonia, unspecified organism Diagnosis: Principal (3) Pleural effusion ICD Code: J90 - Pleural effusion, not elsewhere classified Diagnosis: Principal (4) Contusion of scalp, initial encounter ICD Code: S00.03XA - Contusion of scalp, initial encounter Status: Acute Procedures Echocardiogram 06/06/2017 Normal left ventricular size. Mild concentric left ventricular hypertrophy. The left ventricular systolic function is normal with an estimated ejection fraction in the range of 60-65%. The left atrial size is mildly dilated. The right atrial size is mildly dilated. [id number] mitral valve regurgitation. Mild mitral annular calcification. Aortic valve sclerosis is present. There is mild to moderate tricuspid valve regurgitation. Severe pulmonary hypertension. The estimated pulmonary arterial pressure is 75 mmHg. Brief History - From Admission This is a pleasant 86 y/o Female who was in ER one day before coming to ER was diagnosed with a pleural effusion and Pneumonia was started on antibiotics, Patient was home today on the couch when she suddenly is unaware of how she ended up on the floor with a head laceration and pain to her occiput area she was lying there for a while when her daughter came and found her. Patient on arrival is awake alert mildly tachycardic 123 sinus with few PVCs patient denies any illness or pain except that pain in her head. He is on p.o. Levaquin for this and still is mildly febrile and tachycardic and had a syncopal episode. Denies chest pain denies SOB Seen in her bedroom, found dry mouth, no new issues, CBC/BMP: 06/12/17 0530 06/12/17 0530 Significant Findings Laboratory Tests Test 06/12/17 05:30 White Blood Count 22.9 TH/MM3 (4.0-11.0) Platelet Count 521 TH/MM3 (150-450) Neutrophils (%) (Auto) 85.6 % (16.0-70.0) Lymphocytes (%) (Auto) 6.1 % (9.0-44.0) Neutrophils # (Auto) 19.6 TH/MM3 (1.8-7.7) Monocytes # (Auto) 1.8 TH/MM3 (0-0.9) Neutrophils % (Manual) 79 % (16-70) Neutrophils # (Manual) 19.5 TH/MM3 (1.8-7.7) Myelocytes 1 % (0-0) Platelet Estimate HIGH (NORMAL) Blood Urea Nitrogen 21 MG/DL (7-18) Random Glucose 113 MG/DL (74-106) Calcium Level 8.1 MG/DL (8.5-10.1) Potassium Level 2.9 MEQ/L (3.5-5.1) Chloride Level 95 MEQ/L (98-107) Carbon Dioxide Level 33.2 MEQ/L (21.0-32.0) Imaging Last Impressions Thoracentesis Ultrasound 06/11/17 0600 Signed Impressions: Service Date/Time: Sunday, June 11, 2017 15:20 - CONCLUSION: 1. Uncomplicated ultrasound-guided thoracentesis of loculated anterior right pleural effusion. Only a small amount of fluid could be removed. Rickey Schmitz MD Chest X-Ray 06/11/17 0000 Signed Impressions: Service Date/Time: Sunday, June 11, 2017 16:00 - CONCLUSION: 1. No significant pneumothorax following chest tube removal and left-sided thoracentesis. 2. Small residual inferior anterior loculated pleural effusion. 3. Mild left lung base airspace disease, likely atelectasis. Rickey Schmitz MD Chest CT 06/10/17 0000 Signed Impressions: Service Date/Time: May 16:13 - CONCLUSION: 1. Interval decrease in volume of the right pleural effusion secondary to placement of small chest tube with small to moderate sized partially loculated effusion still noted. 2. Interval development of small left pleural effusion. 3. Right basilar consolidation is stable. 4. Coronary artery calcifications. 5. Degenerative changes and scoliosis of the thoracolumbar spine. 6. Stable left renal cyst. 7. Stable 6 mm low density indeterminate left lobe hepatic nodule. 8. Severe degenerative changes involving left shoulder. Noel Schmid MD Chest Tube Insertion 06/07/17 0000 Signed Impressions: Service Date/Time: Wednesday, June 07, 2017 16:40 - CONCLUSION: Uncomplicated CT-guided thoracostomy tube placement for right pleural effusion. Nikita Stuart MD Carotid Artery Ultrasound 06/05/17 0000 Signed Impressions: Service Date/Time: Monday, June 05, 2017 12:51 - CONCLUSION: Moderate atherosclerosis identified within the region of the carotid bulbs. No significant stenosis is visualized.. Ryanne Barton MD Head CT 06/04/17 0000 Signed Impressions: Service Date/Time: Sunday, June 04, 2017 21:56 - CONCLUSION: 1. No bleed or evidence of an acute ischemic event. 2. Ventriculomegaly unchanged. 3. Chronic white matter changes are again seen. Nikita Aguilar MD PE at Discharge GENERAL: Alert, oriented 3, NAD. SKIN: Warm and dry. HEAD: Normocephalic. EYES: No scleral icterus. No injection or drainage. NECK: Supple, trachea midline. No JVD or lymphadenopathy. CARDIOVASCULAR: Regular rate and rhythm without murmurs, gallops, or rubs. RESPIRATORY: Moderate air entry, no appreciable wheezing. No accessory muscle use. GASTROINTESTINAL: Abdomen soft, non-tender, nondistended. MUSCULOSKELETAL: No cyanosis, or edema. BACK: Nontender without obvious deformity. No CVA tenderness. Pt update on day of discharge Patient is currently doing well. No acute concerns. No fever, chills. Currently on room air. Scalp laceration namita removed today 06/13/2017. Hospital Course Ms. Palacio is a pleasant 86-year-old female with a history of hypertension, arthritis who was recently diagnosed in the ED with pneumonia and pleural effusion and was sent home on antibiotics. 2 days later patient fell at home and had a laceration on her head. CT scan of the chest showed right basilar consolidation with partially loculated right pleural effusion. Patient met sepsis criteria and started on IV antibiotics. A right-sided chest tube was also placed for draining pleural effusion. Sepsis Patient met criteria with leukocytosis, tachycardia, pneumonia Patient continued on cefepime, Zithromax. Currently on Levaquin 750 mg daily. Influenza testing was negative Blood cultures negative so far Legionella/streptococcal antigen negative Sputum culture rare growth of normal respiratory bertrand Urine culture showed immature growth Acute hypoxic respiratory failure Severe pulmonary arterial hypertension Likely secondary to pleural effusion, possible empyema, pneumonia Continue to some rotation maintain O2 sats greater than 90% Continue duo nebs every 6 hours while awake and every 2 hours Prednisone 10 mg twice daily. Right basilar pneumonia Right sided pleural effusion, loculated Continue antibiotics as above Chest tube in place on the right side. Supplemental O2 requirement is improving currently on 2 L. Continue Mucinex Increased in WBC maybe partially related to steroid. Received Levaquin 750 mg daily. Required chest tube which was discontinued on 06/12/2017. Syncopal episode unknown etiology could be secondary to vasovagal, sepsis, hypoxia CT the brain did not indicate any acute abnormality Carotid ultrasound shows moderate atherosclerosis with no significant stenosis visualized Echocardiogram indicated ejection fraction 60-65% with dilated ventricles. Severe pulmonary hypertension with PA peak pressure 75 mmHg. Monitor telemetry Hypokalemia Replaced with PO KCL. DNR. SCDs. Pt Condition on Discharge: Good Discharge Disposition: Discharge to SNF Discharge Time: > 30 minutes Discharge Instructions DIET: Follow Instructions for: Heart Healthy Diet Activities you can perform: Regular-No Restrictions Follow up Referrals: Pulmonology - 10 Days with Donnie Villavicencio MD [facility]/ New Medications: Potassium Chloride ER (K-Tab) 10 Meq Tab 10 MEQ PO DAILY for Electrolyte Replacement, #30 TAB 0 Refills Potassium Chloride ER (K-Tab) 20 Meq Tab 20 MEQ PO BID for Electrolyte Replacement, #6 TAB 0 Refills Acetaminophen-Codeine (Acetaminophen-Codeine) 300-30 mg Tab 1 TAB PO HS PRN for PAIN SCALE 1-10, insomnia., #10 TAB Prednisone (Prednisone) 10 Mg Tab 10 MG PO BID for Inflammation, #10 TAB Torsemide (Torsemide) 5 Mg Tab 10 MG PO BID@09,18 for fluid, #60 TAB Continued Medications: Albuterol 8.5 GM Inh (Proair Hfa 8.5 GM Inh) 90 Mcg/Act Aer 2 PUFF INH Q4-6H PRN for SHORTNESS OF BREATH, #1 INHALER 0 Refills 108 mcg/actuation Amlodipine (Amlodipine) 5 Mg Tab 5 MG PO DAILY for Blood Pressure Management, #30 TAB 0 Refills Cyanocobalamin (Vitamin B-12) 1,000 Mcg Subl 1000 MCG SL DAILY for Nutritional Supplement, TAB.SL 0 Refills Levofloxacin (Levaquin) 750 Mg Tablet 750 MG PO DAILY for Infection for 5 Days, #5 TAB 0 Refills Metoprolol Tartrate (Metoprolol Tartrate) 50 Mg Tab 50 MG PO BID, #60 TAB 0 Refills Multiple Vitamin (Multiple Vitamin) 1 Tab 1 TAB PO DAILY for Nutritional Supplement, TAB 0 Refills Ranitidine (Zantac) 150 Mg Tab 150 MG PO BID for Reduce Stomach Acid, #60 TAB 0 Refills Valsartan (Diovan) 80 Mg Tab 1 TAB PO TID, #30 TAB 0 Refills [Iron] () 1 TAB PO DAILY Kin Sagastume DO Jun 13, 2017 13:22
== END 2017-06-13 15:42 | DRG 871 ==
LOC: PHED 21:30 → INTOOBSV 06-05 00:53 → PHEDA 06-05 00:53 → PH3B 06-05 02:27 → OBSVTOIN 06-06 10:40 → PHICU 06-06 20:23 → HCVI 06-07 14:16 → HCPC 06-08 15:00
PROVIDERS: ADMIT Hospitalist; ATTEND Hospitalist
PROC: 0HQ0XZZ Repair Scalp Skin, External Approach (ICD-10-PCS; principal; 2017-06-06)
PROC: 0W993ZZ Drainage of Right Pleural Cavity, Percutaneous Approach (ICD-10-PCS; 2017-06-06)
PROC: 0W9930Z Drainage of Right Pleural Cavity with Drainage Device, Percutaneous Approach (ICD-10-PCS; 2017-06-07)
PROC: 0W993ZZ Drainage of Right Pleural Cavity, Percutaneous Approach (ICD-10-PCS; 2017-06-11)
DX: A41.9 Sepsis, unspecified organism (principal); J18.9 Pneumonia, unspecified organism; J96.01 Acute respiratory failure with hypoxia; J91.8 Pleural effusion in other conditions classified elsewhere; E86.0 Dehydration; N39.0 Urinary tract infection, site not specified; I27.21 Secondary pulmonary arterial hypertension; E87.1 Hypo-osmolality and hyponatremia; S01.01XA Laceration without foreign body of scalp, initial encounter; I49.3 Ventricular premature depolarization; R00.0 Tachycardia, unspecified; I10 Essential (primary) hypertension; N39.3 Stress incontinence (female) (male); R55 Syncope and collapse; E87.6 Hypokalemia; N28.1 Cyst of kidney, acquired; I08.3 Combined rheumatic disorders of mitral, aortic and tricuspid valves; W08.XXXA Fall from other furniture, initial encounter; Y92.009 Unspecified place in unspecified non-institutional (private) residence as the place of occurrence of the external cause; Z66 Do not resuscitate; Z96.643 Presence of artificial hip joint, bilateral; Z96.652 Presence of left artificial knee joint; R07.81 Pleurodynia; R05 Cough
CPT/HCPCS: 12002; 32555; 32557; 70450; 71045; 71046; 71250; 76937; 80048; 80053; 80061; 81001; 82607; 82746; 82945; 83036; 83615; 83690; 83735; 84157; 84425; 84439; 84443; 84484; 85007; 85025; 85027; 85610; 85730; 87015; 87040; 87070; 87086; 87102; 87116; 87205; 87206; 87449; 87804; 88112; 88305; 89051; 90471; 93306; 93880; 94150; 94640; 94664; 94667; 94668; 96361; 96365; 96366; 96367; 96368; 99152; 99153; 99284; C1729; C1769; G0378; G8987-GP; G8988-GP; J0456; J0692; J1644; J1956; J2060; J2250; J2920; J3010; J3480; J7030; J7040; J7050; J7512; Q0163